=== PATIENT | male | born 1980 | race Caucasian/White ===

== ENCOUNTER 2024-06-07 21:26 | Inpatient (IN) | payer OTHER ==
[2024-06-07] MEDS ORDERED: VANCOMYCIN 1 GM/VIAL ONE (23:40)
[2024-06-07] MEDS ORDERED: HYDROMORPHONE HCL 2 MG/ML inj ONE (23:41)
[2024-06-07] MEDS ORDERED: ONDANSETRON 4 MG/2 ML VIAL ONE (23:41)
[2024-06-07] MEDS ORDERED: CEFEPIME 2 GM VIAL ONE (23:41)
[2024-06-07] MEDS ORDERED: NA CHLORIDE 0.9% 250 ML ONE (23:41)
[2024-06-07] MEDS ORDERED: FAMOTIDINE 20 MG/2 ML VIAL IV ONE (23:41)
[2024-06-07] MEDS ORDERED: DIPHENHYDRAMINE 50 MG/ML VIAL ONE (23:41)
[2024-06-07] MEDS ORDERED: NA CHLORIDE 0.9% 1,000 ML ONE (23:42)
[2024-06-07] MEDS ORDERED: NA CHLORIDE 0.9% 100 ML ONE (23:42)
[2024-06-07 23:56] LABS: Absolute Lymphocytes (CBC) 2.3 K/uL (0.7-4.9); Absolute Monocytes 0.3 K/uL (0.1-1.3); Absolute Neutrophil 4.8 K/uL (1.8-8.0); Basophils % 0.6 % (0-1.3); Eosinophils % 0.3 % (0-4.4); Hematocrit 36.4 % (39.6-49.0); Hemoglobin 12.5 g/dL (13.6-17.9); Lymphocytes % 30.9 % (15.3-44.8); MCH 30.7 pg (27.0-35.0); MCHC 34.2 g/dL (32.0-36.0); MCV 89.8 fL (80-100); Monocytes % 4.5 % (3.3-12.3); Neutrophils % 63.7 % (41.7-73.7); Platelets 243 thou/uL (152-406); RBC Red Blood Cell Count 4.06 M/uL (4.33-5.43); Red Cell Distribution Width 15.4 % (12.1-15.2)
[2024-06-08 00:16] LABS: ALT/SGPT 15 U/L (16-61); AST/SGOT < 10 U/L (15-37); Albumin 3.3 g/dL (3.4-5.0); Albumin/Globulin Ratio 0.7 (1.1-1.8); Alkaline Phosphatase 144 U/L (45-117); Anion Gap 9.9 mEq/L (5.0-15.0); BUN Blood Urea Nitrogen 22 mg/dL (7-18); Bicarbonate 26 mEq/L (21-32); Bilirubin Total 0.4 mg/dL (0.2-1.0); C-Reactive Protein < 2.90 mg/L (<3.00); Glomerular Filtration Rate 45 ml/min (=/>90); Glucose Level 361 mg/dL (74-106); Lipase 106 U/L (13-75); NT PRO-BNP 59 pg/mL (<125); Potassium 3.9 mEq/L (3.5-5.1); Protein, Total 8.3 g/dL (6.4-8.2); Sodium Level 135 mEq/L (136-145)
[2024-06-08] MEDS ORDERED: LORazepam 2 MG/ML VIAL ONE (01:28)
[2024-06-08] MEDS ORDERED: INSULIN REGULAR (HUMAN) 100 UNIT/ML ONE ×2 (01:29→09:30)
[2024-06-08] MEDS ORDERED: NA CHLORIDE 0.9% 1,000 ML ONE (01:29)
[2024-06-08] MEDS ORDERED: HYDROMORPHONE HCL 2 MG/ML inj ONE (01:29)
--- NOTE | 2024-06-08 02:14 | RAD REPORT ---
EXAM: CT Chest, Abdomen and Pelvis Without Intravenous Contrast CLINICAL HISTORY: The patient is 43 years old and is Male; ABDOMINAL DISTENTION TECHNIQUE: Axial computed tomography images of the chest, abdomen and pelvis without intravenous contrast. S agittal and coronal reformatted images were created and reviewed. This CT exam was performed using one or more of the following dose reduction techniques: automated exposure control, adjustmen t of the mA and/or kV according to patient size, and/or use of iterative reconstruction technique. COMPARISON: No relevant prior studies available. FINDINGS: CHEST: LUNGS: The lungs are clear of focal opacity, mass, or consolidation. PLEURAL SPACE: Unremarkable. No significant effusion. No pneumothorax. HEART: Minimal calcification coronary vessels is noted. The heart is not enlarged. There is no pe ricardial effusion. ABDOMEN: LIVER: A low attenuating lesion within the right hepatic lobe is present measuring approximately 5.1 x 3.5 cm on coronal image 54. The liver is otherwise homogeneous. GALLBLADDER AND BILE DUCTS: Surgical clips are present in the right upper quadrant, consistent wi th previous cholecystectomy. PANCREAS: Mild atrophy and fatty infiltration of pancreas is noted. No ductal dilation. SPLEEN: Unremarkable. ADRENALS: Unremarkable. No mass. KIDNEYS AND URETERS: No obstructing stones. No hydronephrosis. No perinephric fluid. STOMACH AND BOWEL: The stomach is minimally distended with food contents. The small bowel is norm al in caliber. Stool is present throughout the colon. There is no mucosal thickening or evidence of obstruction. PELVIS: APPENDIX: The appendix is normal in caliber without surrounding inflammation. BLADDER: The bladder is well distended. No stones. REPRODUCTIVE: Unremarkable as visualized. CHEST, ABDOMEN and PELVIS: INTRAPERITONEAL SPACE: Unremarkable. No significant fluid collection. No free air. BONES/JOINTS: Obliteration of the intervertebral disc space at L4-L5 is noted. The remaining inte rvertebral disc spaces are maintained. Neural foraminal narrowing at L4-L5 is present with mild facet arthropathy. There is no acute fracture. SOFT TISSUES: A tiny fat-containing umbilical hernia is present. A small lipoma within the equipment manager ior aspect of the right upper back measuring approximately 4.9 x 4.0 cm is present. VASCULATURE: Calcified phleboliths are present within the pelvis. Minimal atherosclerosis of th e vasculature is present. LYMPH NODES: Unremarkable. No enlarged lymph nodes. IMPRESSION: 1. No acute findings on this noncontrast CT of the chest, abdomen and pelvis to explain the patient 's symptoms. 2. Low attenuating right hepatic lobe lesion as described. Correlation with prior imaging to assess stability is recommended. 3. Chronic findings as detailed above. Electronically signed by: Trinity Bridges MD 06/08/2024 02:[address] [facility] Due to temporary technical issues with the [employer] reporting system, reports are being bert d by the in-house radiologist without review as a courtesy to ensure prompt reporting the interpreting radiologist is fully responsible for the content of the report. Transcribed Date/Time: 06/08/2024 2:13 AM
--- NOTE | 2024-06-08 02:26 | EDPHYS ---
Physician Documentation [facility] Name: Isaac Desai Age: 43 yrs Sex: Male : 1980 Arrival Date: 06/07/2024 Time: 21:26 Bed 13 Private MD: ED Physician Vince Leach HPI: 06/07 21:40 This 43 yrs old Male presents to ER via Unassigned with complaints of sp4 Nausea/Vomiting, Wound Infection. 06/08 23:16 43-year-old male presents with complaint of nausea vomiting and abdominal pain, also sp4 complaining of right lower below-knee amputation stump irritation and open wound.. 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 - Infectious Disease History:: Denies. - Social history:: Smoking status: Patient reports the use of cigarette tobacco products, unknown amount. - Family history:: not pertinent. ROS: 23:16 Constitutional: Negative for fever, chills, and weight loss, positive nausea vomiting sp4 and abdominal pain , positive infection and open wound right lower extremity below-knee amputation stump 23:16 All other systems are negative, Exam: 23:16 Constitutional: This is a well developed, well nourished patient who is awake, alert, sp4 and in no acute distress. Head/Face: Normocephalic, atraumatic. Eyes: Pupils equal round and reactive to light, extra-ocular motions intact. Lids and lashes normal. Conjunctiva and sclera are not injected. Cornea within normal limits. Periorbital areas with no swelling, redness, or edema. ENT: Nares patent. No nasal discharge, no septal abnormalities noted. Tympanic membranes are normal and external auditory canals are clear. Oropharynx with no redness, swelling, or masses, exudates, or evidence of obstruction, uvula midline. Mucous membranes moist. Neck: Trachea midline, no thyromegaly or masses palpated, and no cervical lymphadenopathy. Supple, full range of motion without nuchal rigidity, or vertebral point tenderness. Chest/axilla: Normal chest wall appearance and motion. Nontender with no deformity. No lesions are appreciated. Cardiovascular: Regular rate and rhythm with a normal S1 and S2. No gallops, murmurs, or rubs. Normal PMI, no JVD. No pulse deficits. Respiratory: Lungs have equal breath sounds bilaterally, clear to auscultation and percussion. No rales, rhonchi or wheezes noted. No increased work of breathing, no retractions or nasal flaring. Abdomen/GI: Soft, with normal bowel sounds. No distension or tympany. No guarding or rebound. No evidence of tenderness throughout. Back: No spinal tenderness. No costovertebral tenderness. Skin: Warm, dry with normal turgor. Normal color with no rashes, no lesions, and no evidence of cellulitis. MS/ Extremity: Pulses equal, no cyanosis. Neurovascular intact. Right BKA site has signs of cellulitis and open wound with small amount of purulent drainage. Neuro: Awake and alert, GCS 15, oriented to person, place, time, and situation. Cranial nerves II-XII grossly intact. Motor strength 5/5 in all extremities. Sensory grossly intact. Psych: Awake, alert, with orientation to person, place and time. Behavior, mood, and affect are within normal limits Vital Signs: 06/07 23:47 BP 155 / 101; Pulse 89; Resp 16; Temp 98.7; Pulse Ox 100% on R/A; Weight 74.84 kg; Pain dd2 10/10; 06/08 00:00 BP 159 / 99; Pulse 81; Resp 16; Pulse Ox 100% on R/A; dd2 00:30 BP 147 / 90; Pulse 77; Resp 16; Pulse Ox 100% on R/A; dd2 01:00 BP 149 / 91; Pulse 74; Resp 17; Pulse Ox 100% on R/A; dd2 02:00 BP 136 / 95; Pulse 85; Resp 16; Pulse Ox 100% on R/A; dd2 06/07 23:47 Pain Scale: Adult dd2 Darryl Coma Score: 06/07 23:55 Eye Response: spontaneous(4). Motor Response: obeys commands(6). Verbal Response: dd2 oriented(5). Total: 15. 06/08 23:16 Eye Response: spontaneous(4). Motor Response: obeys commands(6). Verbal Response: sp4 oriented(5). Total: 15. MDM: 06/07 21:41 Medical Screening Exam initiated sp4 06/08 01:33 ED course: EXAM: XR Right Tibia and Fibula, 2 Views CLINICAL HISTORY: The patient is 43 sp4 years old and is Male; stump infection TECHNIQUE: Frontal and lateral views of the right tibia and fibula. COMPARISON: No relevant prior studies available. FINDINGS: BONES/JOINTS: Evidence of oevby-cua-opza amputation is noted. Mild sclerosis and irregularity involving the distal aspect of the residual tibia is noted. Remaining bone mineralization and contour is normal. No acute fracture. No dislocation. SOFT TISSUES: Mild skin thickening and suggested ulceration of the stump is present. No radiopaque foreign body. IMPRESSION: Mild skin thickening and suggested ulceration of the stump is present. Findings suggest cellulitis. Minimal irregularity of the distal aspect of the tibia which may be secondary to developing osteomyelitis. Consider further evaluation with MRI. . 02:08 ED course: COMPARISON: No relevant prior studies available. FINDINGS: CHEST: LUNGS: The sp4 lungs are clear of focal opacity, mass, or consolidation. PLEURAL SPACE: Unremarkable. No significant effusion. No pneumothorax. HEART: Minimal calcification coronary vessels is noted. The heart is not enlarged. There is no pericardial effusion. ABDOMEN: LIVER: A low attenuating lesion within the right hepatic lobe is present measuring approximately 5.1 x 3.5 cm on coronal image 54. The liver is otherwise homogeneous. GALLBLADDER AND BILE DUCTS: Surgical clips are present in the right upper quadrant, consistent with previous cholecystectomy. PANCREAS: Mild atrophy and fatty infiltration of pancreas is noted. No ductal dilation. SPLEEN: Unremarkable. ADRENALS: Unremarkable. No mass. KIDNEYS AND URETERS: No obstructing stones. No hydronephrosis. No perinephric fluid. STOMACH AND BOWEL: The stomach is minimally distended with food contents. The small bowel is normal in caliber. Stool is present throughout the colon. There is no mucosal thickening or evidence of obstruction. PELVIS: APPENDIX: The appendix is normal in caliber without surrounding inflammation. BLADDER: The bladder is well distended. No stones. REPRODUCTIVE: Unremarkable as visualized. CHEST, ABDOMEN and PELVIS: INTRAPERITONEAL SPACE: Unremarkable. No significant fluid collection. No free air. BONES/JOINTS: Obliteration of the intervertebral disc space at L4-L5 is noted. The remaining intervertebral disc spaces are maintained. Neural foraminal narrowing at L4-L5 is present with mild facet arthropathy. There is no acute fracture. SOFT TISSUES: A tiny fat-containing umbilical hernia is present. A small lipoma within the posterior aspect of the right upper back measuring approximately 4.9 x 4.0 cm is present. VASCULATURE: Calcified phleboliths are present within the pelvis. Minimal atherosclerosis of the vasculature is present. LYMPH NODES: Unremarkable. No enlarged lymph nodes. IMPRESSION: 1. No acute findings on this noncontrast CT of the chest, abdomen and pelvis to explain the patient's symptoms. 2. Low attenuating right hepatic lobe lesion as described. Correlation with prior imaging to assess stability is recommended. 3. Chronic findings as detailed above. Electronically signed by: Trinity Bridges MD 06/08/2024 02:03 AM. 02:22 Differential diagnosis: Nonspecific abd pain, gastritis, pancreatitis, diverticulitis, sp4 viral gastroenteritis, gastroenteritis. Data reviewed: vital signs, nurses notes, lab test result(s), CBC, drug level(s), electrolytes, hepatic panel, urinalysis, radiologic studies, CT scan, plain films. Consideration of Admission/Observation Patient was admitted/placed on observation. Escalation of care including admission/observation considered. Management of patient was discussed with the following: Hospitalist: Alphonso FITZGERALD . Press And Blow Machine Tender: Ricardo FITZGERALD General Surgery . ED course: Patient has isolated liver mass 5 by 3.5 cm. No sign of metastatic disease. Patient stable for admission for evaluation of right lower below-knee stump cellulitis and open sore. . 23:19 ED course: Patient was admitted in stable condition.. 06/07 22:10 Order name: CBC with Diff; Complete Time: : sp4 06/07 22:10 Order name: Urinalysis w/ reflexes sp4 06/07 22:11 Order name: CRP; Complete Time: : sp4 06/07 22:12 Order name: Blood Culture Adult (2) sp4 06/07 22:12 Order name: AMMONIA; Complete Time: : sp4 06/07 22:12 Order name: BNP; Complete Time: sp4 06/07 23:52 Order name: Comprehensive Metabolic Panel; Complete Time: : EDMS 06/07 23:52 Order name: Lipase; Complete Time: : EDMS 06/08 02:45 Order name: Basic Metabolic Panel EDMS 06/08 02:45 Order name: Basic Metabolic Panel EDMS 06/08 02:45 Order name: CBC with Automated Diff EDMS 06/08 02:45 Order name: CBC with Automated Diff EDMS 06/08 03:30 Order name: Vancomycin Level Trough EDMS 06/08 08:27 Order name: Glucose, Ancillary Testing; Complete Time: 23:19 EDMS 06/08 11:02 Order name: Glucose, Ancillary Testing; Complete Time: 23:19 EDMS 06/07 22:11 Order name: Tib Fib Right XRAY; Complete Time: 23:19 sp4 06/08 00:43 Order name: Chest Abd Pelvis Wo Con; Complete Time: 23:19 EDMS 06/08 02:45 Order name: CONS Physician Consult EDMS 06/07 22:10 Order name: IV Saline Lock; Complete Time: 23:55 sp4 06/07 22:10 Order name: Labs collected and sent; Complete Time: 23:55 sp4 06/07 22:11 Order name: Wound Care: done by MD ; Complete Time: 23:55 sp4 Administered Medications: 06/07 23:54 Drug: Famotidine IVP 20 mg IVP once; dilute with 10 mL 0.9% NaCl; give over 2 minutes dd2 Route: IVP; Site: right antecubital; 06/08 00:10 Follow up: Response: No adverse reaction 2 06/07 23:54 Drug: NS 0.9% IV 1000 ml IV at 1 bolus Per protocol; to be given as a bolus over 60 dd2 minutes Route: IV; Rate: 1 bolus; Site: right antecubital; 06/08 00:58 Follow up: IV Status: Completed infusion; IV Intake: 1000ml 2 06/07 23:54 Drug: HYDROmorphone IVP 2 mg IVP once Route: IVP; Site: right antecubital; dd2 06/08 00:10 Follow up: Response: No adverse reaction dd2 06/07 23:54 Drug: diphenhydrAMINE IVP 25 mg IVP once Route: IVP; Site: right antecubital; dd2 06/08 00:10 Follow up: Response: No adverse reaction dd2 06/07 23:55 Drug: Ondansetron IVP 8 mg IVP once; over 2 minutes Route: IVP; Site: right antecubital;dd2 06/08 00:10 Follow up: Response: No adverse reaction dd2 00:21 Drug: Cefepime IVPB 2 grams IVPB at 200 ml/hr once over 30 mins; (mix in NS 100 mL) dd2 Route: IVPB; Rate: 200 ml/hr; Infused Over: 30 mins; Site: right antecubital; 00:57 Follow up: IV Status: Completed infusion; IV Intake: 100ml dd2 01:46 Drug: NS 0.9% IV 1000 ml IV at 1 bolus Per protocol; to be given as a bolus over 60 dd2 minutes Route: IV; Rate: 1 bolus; Site: right antecubital; 02:53 Follow up: IV Status: Completed infusion; IV Intake: 1000ml dd2 01:46 Drug: Insulin Regular Human IVP 5 units IVP once {Co-Signature: vc1 (Kaic Call dd2 RN).} Route: IVP; Site: right antecubital; 02:01 Follow up: Response: No adverse reaction dd2 01:47 Drug: HYDROmorphone IVP 2 mg IVP once Route: IVP; Site: right antecubital; dd2 02:02 Follow up: Response: No adverse reaction dd2 02:02 Follow up: Response: No adverse reaction dd2 01:47 Drug: Ativan IVP 1 mg IVP once Route: IVP; Site: right antecubital; dd2 02:02 Follow up: Response: No adverse reaction dd2 02:03 Drug: vancoMYCIN IVPB 1 grams IVPB once over 2 hrs Route: IVPB; Infused Over: 2 hrs; dd2 Site: right antecubital; 04:07 Follow up: IV Status: Completed infusion; IV Intake: 250ml dd2 Disposition Summary: 06/08/24 02:25 Hospitalization Ordered Notes: Hospitalization Status: Inpatient Admission sp4 Provider: Saira Werner sp4 Condition: Fair sp4 Problem: new sp4 Symptoms: have improved sp4 Bed/Room Type: Standard sp4 Location: Telemetry/MedSurg (Inpatient)(06/08/24 11:19) bc6 Room Assignment: [facility](06/08/24 11:19) bc6 Diagnosis - Cellulitis of right lower limb sp4 - Uncontrolled diabetes mellitus type 2, acute cellulitis of right below knee stump sp4 associated with open wound, wound dehiscence right lower stump. Hyperglycemia, Liver mass Forms: - Medication Reconciliation Form sp4 - SBAR form sp4 - Leadership Thank You Letter sp4 Signatures: Dispatcher [employer] EDMS Inés Ledbetter rv1 Ida Salgado bc6 Vince Leach MD MD sp4 AIDA GODINEZ RN RN dd2 Kaci Call RN vc1 Corrections: (The following items were deleted from the chart) 06/07 22:12 22:12 Tib Fib Right+RAD.RAD.BRZ ordered. EDMS EDMS 23:51 22:10 COMPREHENSIVE METABOLIC PANEL+C.LAB.BRZ ordered. EDMS EDMS 23:51 22:10 LIPASE+C.LAB.BRZ ordered. EDMS EDMS 06/08 00:42 03 22:10 Chest Abdomen Pelvis W Con+CT.RAD.BRZ ordered. EDMS EDMS 06/08 02:46 02:45 PMHx: Unable to Obtain; dd2 dd2 02:55 02:25 Telemetry/MedSurg (Inpatient) sp4 rv1 02:55 02:25 sp4 rv1 03:05 02:45 Allergies: No Known Allergies; dd2 dd2 11:19 02:55 [facility] ER HOLD rv1 bc6 11:19 02:55 ERHOLD- rv1 bc6
--- NOTE | 2024-06-08 02:26 | ER ---
Nurse's Notes [facility] Name: Isaac Desai Age: 43 yrs Sex: Male : 1980 Arrival Date: 06/07/2024 Time: 21:26 Bed 13 Private MD: Diagnosis: Cellulitis of right lower limb;Uncontrolled diabetes mellitus type 2, acute cellulitis of right below knee stump associated with open wound, wound dehiscence right lower stump. Hyperglycemia, Liver mass Presentation: 06/07 23:47 Chief complaint: Patient states: NAUSEA AND VOMITING FOR 2 WEEKS, PAIN TO RT AMPUTATION dd2 SITE WOUND. Coronavirus screen: At this time, the client does not indicate any symptoms associated with coronavirus-19. Ebola Screen: No symptoms or risks identified at this time. Initial Sepsis Screen: Does the patient meet any 2 criteria? No. Patient's initial sepsis screen is negative. Does the patient have a suspected source of infection? No. Patient's initial sepsis screen is negative. Risk Assessment: Do you want to hurt yourself or someone else? Patient reports no desire to harm self or others. Onset of symptoms is unknown. 23:47 Method Of Arrival: Wheelchair dd2 23:47 Acuity: CHAPARRITA 3 dd2 Triage Assessment: 06/08 02:45 General: Appears uncomfortable, Behavior is appropriate for age, agitated. Pain: dd2 Complains of pain in right knee Pain does not radiate. Pain currently is 10 out of 10 on a pain scale. Quality of pain is described as sharp. EENT: No deficits noted. No signs and/or symptoms were reported regarding the EENT system. Neuro: No deficits noted. Wiley Agitation-Sedation Scale (RASS): +2 Agitated Level of Consciousness is awake, alert, obeys commands, Oriented to person, place, time, situation, Appropriate for age. Cardiovascular: No deficits noted. Patient's skin is warm and dry. Respiratory: No deficits noted. Airway is patent Respiratory effort is even, unlabored, Respiratory pattern is regular, symmetrical. GI: Abdomen is non-distended, Bowel sounds present X 4 quads. Abd is soft and non tender X 4 quads. Reports intolerance of food, nausea, vomiting. : No deficits noted. No signs and/or symptoms were reported regarding the genitourinary system. Derm: Wound noted right knee Other: WOUND TO RT BKA SURGICAL SITE. WOUND WAS ASSESSED BY MD DEBRA PRIOR TO TRIAGE AND DRESSED BY MD Reports burning, pain that is 10 out of 10 on a pain scale. Musculoskeletal: Amputation of left negrete, anterior aspect of left ankle and dorsum of left foot. Range of motion: intact in all extremities. 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 - Infectious Disease History:: Denies. - Social history:: Smoking status: Patient reports the use of cigarette tobacco products, unknown amount. - Family history:: not pertinent. Screenin/05 23:55 [facility] ED Fall Risk Assessment (Adult) History of falling in the last 3 months, dd2 including since admission No falls in past 3 months (0 pts) Confusion or Disorientation No (0 pts) Intoxicated or Sedated No (0 pts) Impaired Gait Yes (1 pt) Mobility Assist Device Used Yes (1 pt) Altered Elimination No (0 pt) Score/Fall Risk Level 0 - 2 = Low Risk Oriented to surroundings, Maintained a safe environment, Educated pt \T\ family on fall prevention, incl call for assistance when getting out of bed, Assessed \T\ reinforced patient's understanding of fall precautions, Hourly rounding (assess needs \T\ fall precautionary measures) done. Abuse screen: Denies threats or abuse. Denies injuries from another. Nutritional screening: No deficits noted. Tuberculosis screening: No symptoms or risk factors identified. Assessment: 23:14 Reassessment: PT BROUGHT FROM TRIAGE. ASSUMING CARE OF PT AT THIS TIME. dd2 23:55 Reassessment: SEE TRIAGE ASSESSMENT FOR FULL ASSESSMENT. dd2 Vital Signs: 23:47 BP 155 / 101; Pulse 89; Resp 16; Temp 98.7; Pulse Ox 100% on R/A; Weight 74.84 kg; Pain dd2 10; 03/06 00:00 BP 159 / 99; Pulse 81; Resp 16; Pulse Ox 100% on R/A; dd2 00:30 BP 147 / 90; Pulse 77; Resp 16; Pulse Ox 100% on R/A; dd2 01:00 BP 149 / 91; Pulse 74; Resp 17; Pulse Ox 100% on R/A; dd2 02:00 BP 136 / 95; Pulse 85; Resp 16; Pulse Ox 100% on R/A; dd2 06/07 23:47 Pain Scale: Adult dd2 Darryl Coma Score: 06/07 23:55 Eye Response: spontaneous(4). Motor Response: obeys commands(6). Verbal Response: dd2 oriented(5). Total: 15. 06/08 23:16 Eye Response: spontaneous(4). Motor Response: obeys commands(6). Verbal Response: sp4 oriented(5). Total: 15. ED Course: 06/07 21:29 Patient arrived in ED. jj6 21:39 Vince Leach MD is Attending Physician. sp4 22:48 Radiology exam delayed due to pt is wanting medication first before doing x rays. az 23:01 AIDA GODINEZ, RN is Primary Nurse. dd2 23:20 Appears angry. CURSING AT RN AND DEMANDING TO SPEAK WITH TALENT ACQUISITION ASSOCIATE. [facility] dd2 TALENT ACQUISITION ASSOCIATE CAME AND SPOKE WITH PT. 23:30 Initial lab(s) drawn, by me, sent to lab. First set of blood cultures drawn by me. dd2 Patient maintains SpO2 saturation greater than 95% on room air. 23:46 Radiology exam delayed due to pt wanting medication first before doing x rays. ml 23:47 Radiology exam delayed due to IV insertion attempt and/or patient not having sj appropriate IV at this time. 23:53 No provider procedures requiring assistance completed. Inserted saline lock: 20 gauge dd2 in right antecubital area, using aseptic technique. Blood collected. Flushed with 10 mL NS. 23:55 Patient has correct armband on for positive identification. Bed in low position. Call dd2 light in reach. Side rails up X 1. Client placed on continuous cardiac and pulse oximetry monitoring. NIBP monitoring applied. Door closed. Noise minimized. Warm blanket given. Pillow given. Verbal reassurance given. 06/08 00:41 Tib Fib Right XRAY In Process Unspecified. EDMS 01:12 Chest Abd Pelvis Wo Con In Process Unspecified. EDMS 02:23 Saira Werner MD is Hospitalizing Provider. sp4 02:45 Triage completed. dd2 02:45 Arm band placed on right wrist. Patient placed in an exam room, on a stretcher, on dd2 pulse oximetry. 11:49 Patient admitted, IV remains in place. [facility] 11:50 Provided Education on: Need for admit. [facility] Administered Medications: 06/07 23:54 Drug: Famotidine IVP 20 mg IVP once; dilute with 10 mL 0.9% NaCl; give over 2 minutes dd2 Route: IVP; Site: right antecubital; 06/08 00:10 Follow up: Response: No adverse reaction 2 06/07 23:54 Drug: NS 0.9% IV 1000 ml IV at 1 bolus Per protocol; to be given as a bolus over 60 dd2 minutes Route: IV; Rate: 1 bolus; Site: right antecubital; 06/08 00:58 Follow up: IV Status: Completed infusion; IV Intake: 1000ml dd2 06/07 23:54 Drug: HYDROmorphone IVP 2 mg IVP once Route: IVP; Site: right antecubital; dd2 06/08 00:10 Follow up: Response: No adverse reaction 2 06/07 23:54 Drug: diphenhydrAMINE IVP 25 mg IVP once Route: IVP; Site: right antecubital; dd2 06/08 00:10 Follow up: Response: No adverse reaction 2 06/07 23:55 Drug: Ondansetron IVP 8 mg IVP once; over 2 minutes Route: IVP; Site: right antecubital;dd2 06/08 00:10 Follow up: Response: No adverse reaction dd2 00:21 Drug: Cefepime IVPB 2 grams IVPB at 200 ml/hr once over 30 mins; (mix in NS 100 mL) dd2 Route: IVPB; Rate: 200 ml/hr; Infused Over: 30 mins; Site: right antecubital; 00:57 Follow up: IV Status: Completed infusion; IV Intake: 100ml dd2 01:46 Drug: NS 0.9% IV 1000 ml IV at 1 bolus Per protocol; to be given as a bolus over 60 dd2 minutes Route: IV; Rate: 1 bolus; Site: right antecubital; 02:53 Follow up: IV Status: Completed infusion; IV Intake: 1000ml dd2 01:46 Drug: Insulin Regular Human IVP 5 units IVP once {Co-Signature: vc1 Kaci Rojas dd2 RN).} Route: IVP; Site: right antecubital; 02:01 Follow up: Response: No adverse reaction dd2 01:47 Drug: HYDROmorphone IVP 2 mg IVP once Route: IVP; Site: right antecubital; dd2 02:02 Follow up: Response: No adverse reaction dd2 02:02 Follow up: Response: No adverse reaction dd2 01:47 Drug: Ativan IVP 1 mg IVP once Route: IVP; Site: right antecubital; dd2 02:02 Follow up: Response: No adverse reaction dd2 02:03 Drug: vancoMYCIN IVPB 1 grams IVPB once over 2 hrs Route: IVPB; Infused Over: 2 hrs; dd2 Site: right antecubital; 04:07 Follow up: IV Status: Completed infusion; IV Intake: 250ml dd2 Medication: 06/07 23:55 VIS not applicable for this client. dd2 Intake: 03 00:57 IV: 100ml; Total: 100ml. dd2 00:58 IV: 1000ml; Total: 1100ml. dd2 02:53 IV: 1000ml; Total: 2100ml. dd2 04:07 IV: 250ml; Total: 2350ml. dd2 Outcome: 02:25 Decision to Hospitalize by Provider. sp4 11:49 Admitted to Tele accompanied by nurse, via wheelchair, room 415, cm10 11:49 Condition: stable 11:49 Instructed on the need for admit, 11:50 Patient left the ED. cm10 Signatures: Dispatcher [employer] EDMS Eleni Ovalles Melissa ml Zavala, Araceli az Jeffries, Jennifer [id number] Vince Leach MD MD sp4 Anna Silva RN RN cm10 AIDA GODINEZ RN RN dd2 Kaci Call RN vc1 Corrections: (The following items were deleted from the chart) 02:46 02:45 PMHx: Unable to Obtain; dd2 dd2 03:05 02:45 Allergies: No Known Allergies; dd2 dd2
[2024-06-08] MEDS ORDERED: MORPHINE 2 MG/ML SYR IV PRN (02:40)
[2024-06-08] MEDS ORDERED: GLUCAGON 1 MG/VIAL IM PRN (02:48)
[2024-06-08] MEDS ORDERED: D10W 125 ML IV PRN (02:48)
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
[2024-06-08] MEDS ORDERED: VANCOMYCIN 1 GM in NA CHLORIDE 0.9% 250 ML IVPB SCH (03:00)
[2024-06-08] MEDS: VANCOMYCIN 250 MG in NA CHLORIDE 0.9% 100 ML IVPB ONE (03:30)
[2024-06-08] MEDS: OXYCODONE HCL 5 MG TAB PO ONE (03:57)
[2024-06-08] MEDS ORDERED: OXYCODONE HCL 5 MG TAB ONE (03:59)
[2024-06-08] MEDS ORDERED: Ringers Lactate 1,000 ML IV ONE (04:00)
[2024-06-08] MEDS: Ringers Lactate 1,000 ML IV SCH (04:05)
[2024-06-08 04:35] VITALS: BMI 24.3
[2024-06-08] MEDS: HYDROMORPHONE HCL 2 MG/ML inj IV ONE ×2 (04:47→21:51)
--- NOTE | 2024-06-08 05:45 | RAD REPORT ---
EXAM: XR Right Tibia and Fibula, 2 Views CLINICAL HISTORY: The patient is 43 years old and is Male; stump infection TECHNIQUE: Frontal and lateral views of the right tibia and fibula. COMPARISON: No relevant prior studies available. FINDINGS: BONES/JOINTS: Evidence of hqlzb-[id number] amputation is noted. Mild sclerosis and irregularity i nvolving the distal aspect of the residual tibia is noted. Remaining bone mineralization and contour is normal. No acute fracture. No dislocation. SOFT TISSUES: Mild skin thickening and suggested ulceration of the stump is present. No radiopa que foreign body. IMPRESSION: Mild skin thickening and suggested ulceration of the stump is present. Findings suggest celluliti s. Minimal irregularity of the distal aspect of the tibia which may be secondary to developing osteomyelitis. Consider further evaluation with MRI. Electronically signed by: Trinity Bridges MD 06/08/2024 01:27 AM [facility] Due to temporary technical issues with the PACS/[employer] reporting system, reports are being bert d by the in-house radiologist without review as a courtesy to ensure prompt reporting the interpreting radiologist is fully responsible for the content of the report. Transcribed Date/Time: 06/08/2024 5:45 AM
[2024-06-08] MEDS ORDERED: FENTANYL CITR 100 MCG/2 ML ONE (08:54)
[2024-06-08] MEDS: FENTANYL CITR 100 MCG/2 ML IV PRN (09:05)
[2024-06-08] MEDS ORDERED: HEPARIN 5000 UNIT/ML 1 ML VIAL ONE (09:30)
[2024-06-08] MEDS: HEPARIN 5000 UNIT/ML 1 ML VIAL SQ SCH (10:53)
[2024-06-08] MEDS: INSULIN REGULAR (HUMAN) 100 UNIT/ML SQ SCH (10:53)
[2024-06-08] MEDS ORDERED: HYDROMORPHONE HCL 0.5 MG/0.5 ML INJ ONE (11:33)
[2024-06-08] MEDS ORDERED: ONDANSETRON 4 MG/2 ML VIAL ONE (11:34)
[2024-06-08] MEDS: ONDANSETRON 4 MG/2 ML VIAL IV PRN (11:39)
[2024-06-08] MEDS: HYDROMORPHONE HCL 1 MG/ML INJ IV PRN (11:39)
[2024-06-08] MEDS: INSULIN LISPRO 100 UNIT/1 ML SQ SCH (12:00)
[2024-06-08] MEDS: OXYCODONE HCL 5 MG TAB PO PRN (12:31)
[2024-06-08] MEDS: PREGABALIN 50 MG CAP PO SCH (12:32)
--- NOTE | 2024-06-08 17:11 | P.PN ---
Date of Service: 06/08/24 Patient seen and examined. He is complaining of uncontrolled pain in his right leg. He also complains of nausea and vomiting. Of note patient states he has been diagnosed with stage IV liver cancer. CT scan of the abdomen and pelvis demonstrated liver lesion, no report of metastatic mention. Patient has chronic pain which has been managed by Dr. Anastasiia Denson. Patient is on oxycodone IR 30 mg every 6 hours as confirmed by his pharmacist. Plan: Resume home pain medications. IV hydromorphone as needed for breakthrough pain. General surgery Dr. Silva consulted to evaluate patient's amputation wound gape. He has no leukocytosis and no reported fever. Mild irregularity reported on the end of the tibia amputation stump likely c hronic. Wound does not look infected. Osteomyelitis highly unlikely. Cultures are pending. Awaiting Dr. Silva input. Patient with significant hyperglycemia. Resume home insulin regimen. Continue other home medications.
[2024-06-08] MEDS: INSULIN GLARGINE 100 UNIT/ML SQ SCH (21:00)
[2024-06-08] MEDS: SIMETHICONE 80 MG CHEWABLE TAB PO PRN (21:21)
[2024-06-08] MEDS: VANCOMYCIN 1.25 GM in NA CHLORIDE 0.9% 250 ML IVPB SCH (22:03)
[2024-06-09] MEDS ORDERED: VANCOMYCIN 1.25 GM in NA CHLORIDE 0.9% 250 ML IVPB SCH (04:00)
[2024-06-09] MEDS: HYDROMORPHONE HCL 1 MG/ML INJ IV ONE ×2 (04:20→08:48)
[2024-06-09 05:32] LABS: Absolute Basophils 0.1 K/uL (0-0.5); Absolute Eosinophils 0.1 K/uL (0-0.5); Absolute Lymphocytes (CBC) 2.1 K/uL (0.7-4.9); Absolute Monocytes 0.3 K/uL (0.1-1.3); Absolute Neutrophil 2.2 K/uL (1.8-8.0); Eosinophils % 2.7 % (0-4.4); Hematocrit 29.1 % (39.6-49.0); Hemoglobin 10.1 g/dL (13.6-17.9); Lymphocytes % 43.9 % (15.3-44.8); MCH 31.2 pg (27.0-35.0); MCHC 34.9 g/dL (32.0-36.0); MCV 89.5 fL (80-100); MPV 7.4 fL (7.6-11.3); Monocytes % 5.9 % (3.3-12.3); Neutrophils % 46.5 % (41.7-73.7); Nucleated Red Blood Cells % 0.1 % (0-0); Platelets 165 thou/uL (152-406); RBC Red Blood Cell Count 3.25 M/uL (4.33-5.43); Red Cell Distribution Width 15.2 % (12.1-15.2)
[2024-06-09] MEDS: ONDANSETRON 4 MG/2 ML VIAL IV PRN (05:43)
[2024-06-09 05:48] LABS: Anion Gap 10.2 mEq/L (5.0-15.0); Potassium 4.2 mEq/L (3.5-5.1)
[2024-06-09] MEDS: lisinopriL 5 MG TAB PO SCH (08:34)
[2024-06-09] MEDS: AMLODIPINE 2.5 MG TAB PO SCH (08:34)
[2024-06-09 09:54] VITALS: O2SAT 98
[2024-06-09 11:51] VITALS: TEMP 97.7
--- NOTE | 2024-06-09 16:45 | RAD REPORT ---
EXAM: Tib Fib Right W/Wo Cont HISTORY: Tibial cortical irregularity, r/o osteomyelitis COMPARISON: Radiograph 06/08/2024 TECHNIQUE: Multiplanar multisequence MR images were obtained of the imaged right tibia and fibula wit h and without contrast. FINDINGS: Status post devuq-mkl-[id number] amputation. There is some mild edema within the marrow at the proximal and mid tibial metaphysis but no significant T1 hypointensity identified to suggest osteomyelitis. The proximal fibula is intact. No fluid collection identified. No fractures identified. IMPRESSION: No acute osseous abnormality involving the right tibia or fibula. No evidence of osteomyelitis or abs cess. Postoperative changes from below the knee amputation.
[2024-06-09 17:13] VITALS: BP 174/97
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
== END 2024-06-09 18:33 | disposition home or self-care (01) | DRG 565 ==
LOC: ER 21:26 → ERHOLD 06-08 02:40 → 4TH 06-08 11:46
PROVIDERS: ADMIT Family Medicine; ATTEND Internal Medicine
DX: T87.81 Dehiscence of amputation stump (principal); C22.8 Malignant neoplasm of liver, primary, unspecified as to type; L03.115 Cellulitis of right lower limb; G89.4 Chronic pain syndrome; N18.9 Chronic kidney disease, unspecified; E11.22 Type 2 diabetes mellitus with diabetic chronic kidney disease; E11.65 Type 2 diabetes mellitus with hyperglycemia; F17.210 Nicotine dependence, cigarettes, uncomplicated; R16.0 Hepatomegaly, not elsewhere classified; Z88.5 Allergy status to narcotic agent; Z79.4 Long term (current) use of insulin; Z89.511 Acquired absence of right leg below knee
CPT/HCPCS: 36415; 71250; 74176; 80048; 80053; 82140; 82947; 83690; 83880; 85025; 86140; 87040; 87070; 87075; 87205; 96361; 96365; 96366; 96367; 96375; 99285; A9577; J0692; J1171; J1200; J1644; J1815; J2405; J3010; J3370; J7030; J7050; J7120

== ENCOUNTER 2024-07-03 12:41 | Inpatient (IN) | payer OTHER ==
[2024-07-03] MEDS: OXYCODONE HCL 5 MG TAB PO ONE (01:00)
[2024-07-03] MEDS ORDERED: HYDROMORPHONE HCL 1 MG/ML INJ ONE ×3 (13:31→15:44)
[2024-07-03 14:00] LABS: Absolute Eosinophils 0.1 K/uL (0-0.5); Absolute Lymphocytes (CBC) 1.3 K/uL (0.7-4.9); Absolute Monocytes 0.3 K/uL (0.1-1.3); Absolute Neutrophil 5.7 K/uL (1.8-8.0); Basophils % 0.5 % (0-1.3); Hemoglobin 11.9 g/dL (13.6-17.9); MCH 31.2 pg (27.0-35.0); MCV 89.1 fL (80-100); MPV 7.5 fL (7.6-11.3); Monocytes % 4.5 % (3.3-12.3); Platelets 231 thou/uL (152-406); RBC Red Blood Cell Count 3.82 M/uL (4.33-5.43); Red Cell Distribution Width 15.1 % (12.1-15.2)
[2024-07-03] MEDS ORDERED: NA CHLORIDE 0.9% 1,000 ML ONE ×2 (14:06→16:00)
[2024-07-03 14:20] LABS: ALT/SGPT 18 U/L (16-61); Albumin 3.8 g/dL (3.4-5.0); Albumin/Globulin Ratio 0.9 (1.1-1.8); Alkaline Phosphatase 123 U/L (45-117); Anion Gap 8.4 mEq/L (5.0-15.0); BUN Blood Urea Nitrogen 30 mg/dL (7-18); Bicarbonate 25 mEq/L (21-32); Bilirubin Total 0.8 mg/dL (0.2-1.0); Globulin 4.3 g/dL (2.3-3.5); Glomerular Filtration Rate 43 ml/min (=/>90); Lipase 21 U/L (13-75); Potassium 4.4 mEq/L (3.5-5.1); Protein, Total 8.1 g/dL (6.4-8.2); Sodium Level 133 mEq/L (136-145)
[2024-07-03 14:21] LABS: AST/SGOT < 10 U/L (15-37)
[2024-07-03 14:22] LABS: Glucose Level 410 mg/dL (74-106)
[2024-07-03 14:27] LABS: PT Prothrombin Time 11.8 SECONDS (10-13.0); PTT, Activated Partial Thromb 30.3 SECONDS (27.2-37.4); Protime INR 1.04
[2024-07-03 14:40] LABS: Specific Gravity 1.024 (1.005-1.030); Sqamous Epithelial None Seen /HPF (None Seen); Urine Bacteria <20 /HPF (<20); Urine Bilirubin NEGATIVE (Negative); Urine Blood Trace (Negative); Urine Clarity Extremely Turbid (Clear); Urine Color Yellow (Yellow); Urine Culture Reflex Order NOT NEEDED; Urine Glucose 4+ (Over) (Negative); Urine Ketones TRACE (Negative); Urine Microscopic Reflex YN ORDER UMIC; Urine Mucus Slight /HPF (None Seen); Urine Nitrite NEGATIVE (Negative); Urine Protein 3+ (Negative); Urine RBC <5 /HPF (None Seen); Urine Urobilinogen 1+ (Normal); Urine WBC <5 /HPF (<5); Urine Yeast (Budding) Trace /HPF (None Seen); Urine pH 5.5 (5.0-7.0)
--- NOTE | 2024-07-03 14:55 | RAD REPORT ---
EXAM: Chest Abd Pelvis Wo Con CLINICAL INDICATION: Male, 43 years old abd, liver cancer TECHNIQUE: CT chest, abdomen and pelvis was performed, without IV contrast, as per department protoco l. Axial, sagittal and coronal reconstructions were obtained. One or more of the following dose reduction techniques were used: Automated exposure control, adjustment of the mA and/or kV according to the patient size, and/or iterative reconstruction. Unless otherwise specified, incidental findings do not require dedicated imaging follow-up. [id number]. COMPARISON: 06/08/2024 FINDINGS: The lack of intravenous contrast limits the sensitivity of this exam for evaluation of solid visceral organs, vascular structures, and retroperitoneum. ---THORAX--- LOWER NECK AND CHEST WALL: Visualized thyroid gland and soft tissues are normal. LUNGS AND AIRWAYS: Airways are clear. No evidence of airspace or interstitial process.No suspicious a nd/or stable pulmonary nodules. PLEURA: No pleural effusion. No pneumothorax. MEDIASTINUM AND LYMPH NODES: No mediastinal mass or fluid collection. Normal size mediastinal, hilar, and axillary lymph nodes. Mild distal esophageal thickening. THORACIC AORTA: No thoracic aortic aneurysm. PULMONARY ARTERIES: Caliber is within normal limits. Unable to evaluate for pulmonary emboli due to e ither protocol or lack of contrast. HEART: Normal heart size. Moderate coronary artery calcifications.No significant pericardial effusion . ---ABDOMEN/PELVIS--- UPPER GI: Unremarkable LIVER: Patient inferior aspect of the right hepatic lobe measuring approximately 4.5 cm is not signif icantly changed. GALLBLADDER/BILE DUCTS: Cholecystectomy. Mild extra-hepatic biliary ductal dilatation is likely relat ed to the post-cholecystectomy state. Consider correlating with LFT's.? PANCREAS: Atrophy, but otherwise unremarkable. SPLEEN: Moderate splenomegaly. ADRENALS: No adrenal masses. KIDNEYS AND URETERS: No hydronephrosis.No suspicious renal mass.Nonobstructing renal calculi. ABDOMINAL AORTA AND OTHER VESSELS: Mild atherosclerotic changes. PERITONEUM: No abnormal free fluid. No free air. LYMPH NODES: No pathologic lymphadenopathy. ABDOMINAL WALL: Unremarkable SMALL BOWEL/COLON: Large distal sigmoid and rectal stool burden measuring nearly 9 cm in transverse d imension. Rectal wall thickening and perirectal stranding is present.Normal appendix. URINARY BLADDER: Decompressed, not well assessed. REPRODUCTIVE ORGANS: No pathologic process. ---COMBINED--- MUSCULOSKELETAL: L4-5 fusion may be developmental. No acute fracture. ADDITIONAL FINDINGS: None. IMPRESSION: Large distal sigmoid/rectal stool burden with rectal wall thickening and stranding that may reflect f ecal impaction and stercoral colitis. Low-attenuation lesion right hepatic lobe may represent the patient's known malignancy.
[2024-07-03 14:57] LABS: Barbiturates NEGATIVE (NEGATIVE); Benzodiazepines NEGATIVE (NEGATIVE); Cocaine NEGATIVE (NEGATIVE); METHAMPHETAM NEGATIVE (NEGATIVE); Methadone NEGATIVE (NEGATIVE); Opiates NEGATIVE (NEGATIVE); Phencyclidine NEGATIVE (NEGATIVE); THC Cannibis NEGATIVE (NEGATIVE)
--- NOTE | 2024-07-03 15:04 | EDPHYS ---
Physician Documentation [facility] Name: Isaac Desai Age: 43 yrs Sex: Male : 1980 Arrival Date: 07/03/2024 Time: 12:41 Bed 13 Private MD: ED Physician Isabelle Benjamin HPI: 07/03 13:14 This 43 yrs old Male presents to ER via Wheelchair with complaints of Abdominal Pain, sb4 Nausea/Vomiting, Constipation. 13:37 Patient reports nausea, vomiting, abdominal pain, and constipation for 1 month now. He sb4 reports a history of stage IV liver cancer in which he is no longer receiving treatment for. States that he has not had a bowel movement in a month and every time he eats, he throws it up. States that he was supposed to have an endoscopy next month but the facility canceled it for unknown reasons. Historical: - Allergies: 12:49 Morphine (combative); ss 12:49 Flagyl; ss 12:49 Cipro; ss - PMHx: 12:49 diabetes mellitus; Liver CA (diabetes mellitus ); ss - PSHx: 12:49 RT BKA; ss - Immunization history:: Adult Immunizations up to date. - Infectious Disease History:: Denies. - Social history:: Smoking status: Patient reports the use of cigarette tobacco products, smokes one-half pack cigarettes per day. ROS: 13:37 Constitutional: Negative for fever, chills, and weight loss, sb4 13:37 Abdomen/GI: Positive for abdominal pain, nausea and vomiting, constipation, 13:37 All other systems are negative, Exam: 13:37 Head/Face: Normocephalic, atraumatic. Eyes: Extra-ocular motions intact. Periorbital sb4 areas with no swelling, redness, or edema. Cardiovascular: Regular rate and rhythm with a normal S1 and S2. Respiratory: No increased work of breathing, no retractions or nasal flaring. 13:37 Constitutional: The patient appears alert, awake, uncomfortable, 13:37 Abdomen/GI: Inspection: abdomen appears normal, Bowel sounds: diminished, in all quadrants, Palpation: moderate abdominal tenderness, in all quadrants, Vital Signs: 12:47 BP 162 / 103; Pulse 107; Resp 15; Pulse Ox 100% ; Weight 74.84 kg; Height 5 ft. 11 in. ph ; Pain 9/10; 13:30 BP 162 / 105; Pulse 107; Resp 18; Pulse Ox 100% ; me1 14:30 BP 169 / 94; Pulse 94; Resp 16; Pulse Ox 100% ; me1 15:30 BP 173 / 106; Pulse 87; Resp 16; Pulse Ox 100% ; me1 16:00 BP 157 / 103; Pulse 83; Resp 19; Pulse Ox 100% ; me1 16:25 BP 166 / 98; Pulse 102; Resp 19; Temp 98.4; Pulse Ox 100% ; me1 17:30 BP 164 / 102; Pulse 103; Resp 19; Temp 98.5; Pulse Ox 100% ; me1 12:47 Body Mass Index 23.01 (74.84 kg, 180.34 cm) ph 12:47 Pain Scale: Adult ph MDM: 12:44 Medical Screening Exam initiated sb4 15:04 Data reviewed: vital signs, nurses notes, lab test result(s), radiologic studies, I sb4 have discussed the patient's presentation/case with the attending Emergency Department Physician; and as a result, I will admit patient. Consideration of Admission/Observation Patient was admitted/placed on observation. Care significantly affected by the following chronic conditions: Diabetes, Cancer, Chronic Kidney Disease. Counseling: I had a detailed discussion with the patient and/or guardian regarding the historical points, exam findings, and any diagnostic results supporting the discharge/admit diagnosis, the presence of at least one elevated blood pressure reading (>120/80) during this emergency department visit, lab results, radiology results, the need for further work-up and treatment in the hospital. 07/03 13:14 Order name: Blood Culture Adult (2) [facility] 07/03 13:14 Order name: CBC with Diff; Complete Time: 14:19 4 07/03 13:14 Order name: CMP; Complete Time: 14:30 [facility] 07/03 13:14 Order name: Lactate w/ 2H reflex if indic.; Complete Time: 14:30 [facility] 07/03 13:14 Order name: Protime (+inr); Complete Time: 14:30 [facility] 07/03 13:14 Order name: Ptt, Activated; Complete Time: 14:30 [facility] 07/03 13:14 Order name: Urinalysis w/ reflexes; Complete Time: 14:40 [facility] 07/03 13:14 Order name: Lipase; Complete Time: 14:30 sb4 07/03 13:42 Order name: UDS; Complete Time: 14:58 sb4 07/03 16:00 Order name: Basic Metabolic Panel EDMS 07/03 16:00 Order name: Basic Metabolic Panel EDMS 07/03 16:00 Order name: Basic Metabolic Panel EDMS 07/03 16:00 Order name: Basic Metabolic Panel EDMS 07/03 16:00 Order name: Basic Metabolic Panel EDMS 07/03 16:01 Order name: CBC with Automated Diff EDMS 07/03 16:01 Order name: CBC with Automated Diff EDMS 07/03 16:01 Order name: CBC with Automated Diff EDMS 07/03 16:01 Order name: CBC with Automated Diff EDMS 07/03 16:01 Order name: CBC with Automated Diff EDMS 07/03 16:31 Order name: Glucose, Ancillary Testing; Complete Time: 16:37 EDMS 07/03 14:36 Order name: Chest Abd Pelvis Wo Con; Complete Time: 14:55 [facility] 07/03 16:00 Order name: CONS Physician Consult [facility] 07/03 13:14 Order name: Accucheck; Complete Time: 13:56 sb4 07/03 13:14 Order name: IV Saline Lock - Large Bore; Complete Time: 13:55 sb4 07/03 13:14 Order name: Labs collected and sent; Complete Time: 13:55 sb4 07/03 13:14 Order name: O2 Per Protocol; Complete Time: 13:19 sb4 07/03 13:14 Order name: O2 Sat Monitoring; Complete Time: 13:19 sb4 07/03 13:14 Order name: Vital Signs; Complete Time: 13:19 sb4 07/03 15:55 Order name: Accucheck Blood Glucose; Complete Time: 16:20 sb4 Administered Medications: 13:35 Drug: HYDROmorphone IVP 1 mg IVP once Route: IVP; Site: right forearm; ph 14:00 Follow up: Response: No adverse reaction; Pain is unchanged, physician notified me1 14:10 Drug: NS 0.9% IV 1000 ml IV at 1000 ml once; to be given as a bolus over 60 minutes me1 Route: IV; Rate: 1000 ml; Site: right forearm; 15:26 Follow up: Response: No adverse reaction; IV Status: Completed infusion; IV Intake: me1 1000ml 14:10 Drug: HYDROmorphone IVP 1 mg IVP once Route: IVP; Site: right forearm; me1 15:22 Follow up: Response: No adverse reaction; Pain is decreased me1 15:20 Drug: Ondansetron IVP 4 mg IVP once; over 2 minutes Route: IVP; Site: right forearm; me1 15:26 Follow up: Response: No adverse reaction; Nausea is decreased me1 15:24 Drug: Piperacillin-Tazobactam IVPB 3.375 grams IVPB once over 60 mins; (mix in NS 100 me1 mL) Route: IVPB; Infused Over: 60 mins; Site: right forearm; 15:59 Follow up: Response: No adverse reaction; IV Status: Completed infusion; IV Intake: me1 100ml 15:45 Drug: HYDROmorphone IVP 1 mg IVP once Route: IVP; Site: right forearm; me1 16:20 Follow up: Response: No adverse reaction; Pain is decreased me1 16:14 Drug: NS 0.9% IV 1000 ml IV at 1000 ml once; to be given as a bolus over 60 minutes me1 Route: IV; Rate: 1000 ml; Site: right antecubital; 16:29 Follow up: IV Status: Infusion continued upon admission me1 17:38 Follow up: Response: No adverse reaction; IV Status: Completed infusion; IV Intake: me1 1000ml Disposition Summary: 07/03/24 15:03 Hospitalization Ordered Notes: Hospitalization Status: Inpatient Admission sb4 Provider: Ginny Cornejo [facility] sb4 Condition: Fair sb4 Problem: new sb4 Symptoms: are unchanged sb4 Bed/Room Type: Standard sb4 Room Assignment: 206(07/03/24 16:02) bd Diagnosis - Stercoral colitis sb4 - Type 2 diabetes mellitus with hyperglycemia sb4 - Acute on chronic kidney failure sb4 - Fecal impaction sb4 Forms: - Medication Reconciliation Form sb4 - SBAR form sb4 - Leadership Thank You Letter sb4 Signatures: Dispatcher [employer] EDMaura Amato Shelby, RN RN ss Dante Jimenez, SECOND SHIFT SUPERVISOR-C SECOND SHIFT SUPERVISOR-Cla1 Misti Painter RN RN ph Luz Juárez PAAndrewC PA-C sb4 Yamilex Cummins, RN RN me1 Corrections: (The following items were deleted from the chart) 12:49 12:49 Allergies: Cipro PO; ss ss 13:14 13:14 BLOOD CULTURE*+BA.LAB.BRZ ordered. EDMS EDMS 13:14 13:14 CBC+H.LAB.BRZ ordered. EDMS EDMS 13:14 13:14 COMPREHENSIVE METABOLIC PANEL+C.LAB.BRZ ordered. EDMS EDMS 13:14 13:14 LACTATE+C.LAB.BRZ ordered. EDMS EDMS 13:14 13:14 PROTIME (+INR)+COAG.LAB.BRZ ordered. EDMS EDMS 13:14 13:14 PTT, ACTIVATED+COAG.LAB.BRZ ordered. EDMS EDMS 13:14 13:14 Urinalysis+U.LAB.BRZ ordered. EDMS EDMS 13:14 13:14 LIPASE+C.LAB.BRZ ordered. EDMS EDMS 13:14 13:14 Chest Abdomen Pelvis W Con+CT.RAD.BRZ ordered. EDMS EDMS 16:02 15:03 sb4 bd
--- NOTE | 2024-07-03 15:04 | ER ---
Nurse's Notes [facility] Name: Isaac Desai Age: 43 yrs Sex: Male : 1980 Arrival Date: 07/03/2024 Time: 12:41 Bed 13 Private MD: Diagnosis: Stercoral colitis;Type 2 diabetes mellitus with hyperglycemia;Acute on chronic kidney failure;Fecal impaction Presentation: 07/03 12:47 Chief complaint: Patient states: abd pain, N/V that began 1 month ago. Coronavirus ss screen: Client denies travel out of the [place] in the last 14 days. Ebola Screen: Patient denies exposure to infectious person. Patient denies travel to an Ebola-affected area in the 21 days before illness onset. Initial Sepsis Screen: Does the patient meet any 2 criteria? No. Patient's initial sepsis screen is negative. Does the patient have a suspected source of infection? No. Patient's initial sepsis screen is negative. Risk Assessment: Do you want to hurt yourself or someone else? Patient reports no desire to harm self or others. Onset of symptoms was May 2024. 12:47 Method Of Arrival: Wheelchair ss 12:47 Acuity: CHAPARRITA 3 ss Historical: - Allergies: 12:49 Morphine (combative); ss 12:49 Flagyl; ss 12:49 Cipro; ss - PMHx: 12:49 diabetes mellitus; Liver CA (diabetes mellitus ); ss - PSHx: 12:49 RT BKA; ss - Immunization history:: Adult Immunizations up to date. - Infectious Disease History:: Denies. - Social history:: Smoking status: Patient reports the use of cigarette tobacco products, smokes one-half pack cigarettes per day. Screenin:16 [facility] ED Fall Risk Assessment (Adult) History of falling in the last 3 months, ph including since admission No falls in past 3 months (0 pts) Confusion or Disorientation No (0 pts) Intoxicated or Sedated No (0 pts) Impaired Gait No (0 pts) Mobility Assist Device Used No (0 pt) Altered Elimination No (0 pt) Score/Fall Risk Level 0 - 2 = Low Risk Maintained a safe environment, Provided non-skid footwear, Hourly rounding (assess needs \T\ fall precautionary measures) done. Abuse screen: Denies threats or abuse. Nutritional screening: No deficits noted. Tuberculosis screening: No symptoms or risk factors identified. Assessment: 13:16 General: Appears uncomfortable, ill, Behavior is calm, cooperative, appropriate for ph age, Reports abd pain, N/V that began 1 month ago. Pain: Complains of pain in abdomen Pain does not radiate. Pain currently is 8 out of 10 on a pain scale. Quality of pain is described as crampy, Pain began one month ago Is continuous. 13:16 Neuro: Level of Consciousness is awake, alert, obeys commands, Oriented to person, ph place, time, situation, Appropriate for age. Cardiovascular: Patient's skin is warm and dry. Respiratory: Airway is patent Respiratory effort is even, unlabored, Respiratory pattern is regular, symmetrical. GI: Bowel sounds present X 4 quads. Abdomen is tender to palpation X 4 quads. Reports constipation, nausea, vomiting, since one month ago. : No signs and/or symptoms were reported regarding the genitourinary system. EENT: No signs and/or symptoms were reported regarding the EENT system. Derm: Skin is intact, is healthy with good turgor, Skin is pink, warm \T\ dry. Musculoskeletal: No signs and/or symptoms reported regarding the musculoskeletal system. Vital Signs: 12:47 BP 162 / 103; Pulse 107; Resp 15; Pulse Ox 100% ; Weight 74.84 kg; Height 5 ft. 11 in. ph ; Pain 9/10; 13:30 BP 162 / 105; Pulse 107; Resp 18; Pulse Ox 100% ; me1 14:30 BP 169 / 94; Pulse 94; Resp 16; Pulse Ox 100% ; me1 15:30 BP 173 / 106; Pulse 87; Resp 16; Pulse Ox 100% ; me1 16:00 BP 157 / 103; Pulse 83; Resp 19; Pulse Ox 100% ; me1 16:25 BP 166 / 98; Pulse 102; Resp 19; Temp 98.4; Pulse Ox 100% ; me1 17:30 BP 164 / 102; Pulse 103; Resp 19; Temp 98.5; Pulse Ox 100% ; me1 12:47 Body Mass Index 23.01 (74.84 kg, 180.34 cm) ph 12:47 Pain Scale: Adult ED Course: 12:43 Patient arrived in ED. im 12:43 Luz Juárez PA-C is PHCP. sb4 12:43 Isabelle Benjamin MD is Attending Physician. sb4 12:49 Triage completed. ss 12:49 Arm band placed on right wrist. ss 13:07 Misti Painter, RN is Primary Nurse. ph 13:16 Patient has correct armband on for positive identification. Bed in low position. Call ph light in reach. Side rails up X2. Provided Education on: POC. Verbalized understanding.. Client placed on continuous cardiac and pulse oximetry monitoring. NIBP monitoring applied. Pulse ox on. NIBP on. 13:16 No provider procedures requiring assistance completed. ph 13:29 Inserted saline lock: 20 gauge in right forearm, using aseptic technique. Blood ty collected. Flushed with 10 mL NS. 13:29 Initial lab(s) drawn, by me, sent to lab. First set of blood cultures drawn by me. ty 13:48 Initial lab(s) drawn, by me, sent to lab. Second set of blood cultures drawn by me. ty 13:48 Inserted saline lock: 20 gauge in left upper arm, using aseptic technique. Blood ty collected. Flushed with 10 mL NS. 13:56 Yamilex Cummins, RN is Primary Nurse. me1 13:56 Blood Culture Adult (2) Sent. ty 13:56 CBC with Diff Sent. ty 13:56 CMP Sent. ty 13:56 Lactate w/ 2H reflex if indic. Sent. ty 13:56 Protime (+inr) Sent. ty 13:56 Ptt, Activated Sent. ty 14:25 UDS Sent. ll1 14:25 Urinalysis w/ reflexes Sent. ll1 14:30 Notified Nurse Practitioner and/or Physician Chief Learning Officer of a critical lab result(s), ll1 glucose 410. 14:44 Chest Abd Pelvis Wo Con In Process Unspecified. EDMS 15:02 Ginny Cornejo MD is Hospitalizing Provider. sb4 16:32 Patient admitted, IV remains in place. me1 Administered Medications: 13:35 Drug: HYDROmorphone IVP 1 mg IVP once Route: IVP; Site: right forearm; ph 14:00 Follow up: Response: No adverse reaction; Pain is unchanged, physician notified me1 14:10 Drug: NS 0.9% IV 1000 ml IV at 1000 ml once; to be given as a bolus over 60 minutes me1 Route: IV; Rate: 1000 ml; Site: right forearm; 15:26 Follow up: Response: No adverse reaction; IV Status: Completed infusion; IV Intake: me1 1000ml 14:10 Drug: HYDROmorphone IVP 1 mg IVP once Route: IVP; Site: right forearm; me1 15:22 Follow up: Response: No adverse reaction; Pain is decreased me1 15:20 Drug: Ondansetron IVP 4 mg IVP once; over 2 minutes Route: IVP; Site: right forearm; me1 15:26 Follow up: Response: No adverse reaction; Nausea is decreased me1 15:24 Drug: Piperacillin-Tazobactam IVPB 3.375 grams IVPB once over 60 mins; (mix in NS 100 me1 mL) Route: IVPB; Infused Over: 60 mins; Site: right forearm; 15:59 Follow up: Response: No adverse reaction; IV Status: Completed infusion; IV Intake: me1 100ml 15:45 Drug: HYDROmorphone IVP 1 mg IVP once Route: IVP; Site: right forearm; me1 16:20 Follow up: Response: No adverse reaction; Pain is decreased me1 16:14 Drug: NS 0.9% IV 1000 ml IV at 1000 ml once; to be given as a bolus over 60 minutes me1 Route: IV; Rate: 1000 ml; Site: right antecubital; 16:29 Follow up: IV Status: Infusion continued upon admission me1 17:38 Follow up: Response: No adverse reaction; IV Status: Completed infusion; IV Intake: me1 1000ml Medication: 13:16 VIS not applicable for this client. ph Intake: 15:26 IV: 1000ml; Total: 1000ml. me1 15:59 IV: 100ml; Total: 1100ml. me1 17:38 IV: 1000ml; Total: 2100ml. me1 Outcome: 15:03 Decision to Hospitalize by Provider. sb4 16:32 Admitted to Med/surg accompanied by tech, via wheelchair, room 206, with chart, Report me1 called to faxed, receipt confirmed with Eboni, 16:32 Condition: stable 16:32 Instructed on the need for admit, 17:44 Patient left the ED. me1 Signatures: Dispatcher [facility] EDYoselyn Hernández RN RN ss Misti Painter RN RN ph Wilfredo, Ling, JUAN JOSE RN ll1 Luz Juárez PA-C PALucy sb4 Zonia Benjamin Michelle RN RN me1 Landon Harvey Corrections: (The following items were deleted from the chart) 12:49 12:49 Allergies: Cipro PO; [facility] 13:13 12:47 Pulse 107bpm; Resp 15bpm; Pulse Ox 100%; 74.84 kg; Height 5 ft. 11 in.; BMI: ph 23.0; Pain 9/10, Adult; ss 13:14 12:47 Chief complaint: Patient states: abd pain, N/V that began 1 month ago. ph 13:17 13:16 Pain: Complains of pain in abdomen ph ph
[2024-07-03] MEDS ORDERED: ONDANSETRON 4 MG/2 ML VIAL ONE (15:17)
[2024-07-03] MEDS ORDERED: NA CHLORIDE 0.9% 100 ML ONE (15:17)
[2024-07-03] MEDS ORDERED: PIPERACIL/TAZO 3.375 GM VIAL IV ONE (15:18)
--- NOTE | 2024-07-03 16:36 | P.HP ---
Certification for Inpatient Patient admitted to: Inpatient With expected LOS: >2 Midnights Patient will require the following post-hospital care: None Practitioner: I am a practitioner with admitting privileges, knowledge of patient current condition, hospital course, and medical plan of care. Services: Services provided to patient in accordance with Admission requirements found in Title 42 Section 412.3 of the Code of Federal Regulations Patient History Date of Service: 07/03/24 Reason for admission: Fecal impaction History of Present Illness: 43-year-old male with history of insulin-dependent diabetes, hypertension, chronic pain on opioids presents to the emergency department with severe abdominal pain, constipation. He reports last time he has bowel movement was 1 month ago, he has tried [id number] remedies including magnesium citrate, MiraLAX, enemas and digital disimpaction without any improvement. Patient was evaluated in the emergency department his labs are significant for hyperglycemia with a blood sugar of 410 creatinine 1.93 sodium 133 hemoglobin 11.9 hematocrit 34 white blood cell count 7.5 CT abdomen pelvis without IV contrast was performed which revealed large distal sigmoid/rectal stool burden with rectal wall thickening and stranding which may reflect fecal impaction and stercoral colitis. Low-attenuation lesion in the right hepatic lobe may represent the patient's known malignancy. Patient be admitted for further evaluation and management of fecal impaction/stercoral colitis Allergies morphine Adverse Reaction (Uncoded 06/08/24 03:04) Shortness of breath Home Medications: Amlodipine [Norvasc*] 2.5 mg PO DAILY 06/09/24 Amox/Clavulanate [Augmentin 875-125 Tab] 1 each PO BID #14 tab 06/09/24 Doxycycline Hyclate 100 mg PO BID #14 cap 06/09/24 Glipizide [Glipizide ER] 10 mg PO DAILY 06/09/24 Insulin Glargine,Hum.rec.anlog [Lantus Solostar] 5 units SQ DAILY 06/09/24 Insulin Lispro [Humalog Rojelio Kwikpen] See Protocol SQ ACHS 06/09/24 Oxycodone HCl 30 mg PO Q6HP PRN 06/09/24 Pregabalin 100 mg PO BID 06/09/24 Simethicone [Mylicon*] 80 mg PO Q6H PRN #30 tab 06/09/24 lisinopriL [Lisinopril] 5 mg PO DAILY 06/09/24 - Past Medical/Surgical History -: Insulin-dependent diabetes -: Hypertension -: Chronic pain -: Liver mass/cancer -: Cholecystectomy -: Right BKAtraumatic -: Back surgery Psychosocial/ Personal History: Lives at home with his children/girlfriend - Social History Smoking Status: Current every day smoker Alcohol use: No CD- Drugs: No Caffeine use: Yes Place of Residence: Home Review of Systems 10-point ROS is otherwise unremarkable Gastrointestinal: Abdominal Pain, Constipation Physical Examination - Physical Exam General: Alert, In no apparent distress, Oriented x3 HEENT: Atraumatic, PERRLA, EOMI Neck: Supple, 2+ carotid pulse no bruit, No LAD Respiratory: Clear to auscultation bilaterally, Normal air movement Cardiovascular: Regular rate/rhythm, Normal S1 S2 Gastrointestinal: Normal bowel sounds, No tenderness Musculoskeletal: No tenderness Integumentary: No rashes Neurological: Normal speech, Normal strength at 5/5 x4 extr - Studies Laboratory Data (last 24 hrs) 07/03/24 07/03/24 07/03/24 13:29 13:29 13:29 WBC 7.50 Hgb 11.9 L Hct 34.0 L Plt Count 231 PT 11.8 INR 1.04 APTT 30.3 Sodium 133 L Potassium 4.4 BUN 30 H Creatinine 1.93 H Glucose 410 H* Total Bilirubin 0.8 AST < 10 L ALT 18 Alkaline Phosphatase 123 H Lipase 21 Assessment and Plan - Plan Assessment: Fecal impaction/stercoral colitis Diabetes mellitus type 2insulin-dependent with hyperglycemia Hypertension Hyperlipidemia Liver mass/cancer Chronic pain/opioid use Plan: Fecal impaction/stercoral colitis Digital rectal exam performed, stool near anus Patient unable to tolerate digital disimpaction due to severe pain Has attempted enemas, oral laxatives at home varying types without any significant treatment Also reports digital disimpaction was attempted at home Discussed case with general surgery, plan for disimpaction under anesthesia tomorrow morning around 9 AM N.p.o., IVF, as needed pain medications and antiemetics Diabetes mellitus type 2insulin-dependent with hyperglycemia Every 6 hours Accu-Chek, sliding scale insulin Take studies of long-acting insulin at night Hypertension Hyperlipidemia Continue home medications when verified Liver mass/cancer Was on chemo, radiation around 8 months ago but quit receiving treatment as admitting feel that Has not followed up since then Chronic pain/opioid use Likely contributing to his constipation DVT PPX: SCD Code status: Full Discharge Plan: Home Plan to discharge in: 48 Hours - Advance Directives Does patient have a Living Will: No Does patient have a Durable POA for Healthcare: No - Code Status/Comfort Care Code Status Assessed: Yes (Full code) Critical Care: No Time Spent Managing Pts Care (In Minutes): 65
[2024-07-03] MEDS: HYDROMORPHONE HCL 1 MG/ML INJ IV ONE ×2 (18:28→22:11)
[2024-07-03] MEDS: NA CHLORIDE 0.9% 1,000 ML IV SCH (19:27)
[2024-07-03] MEDS: HYDROMORPHONE HCL 1 MG/ML INJ IV PRN (19:53)
[2024-07-03] MEDS: LORazepam 2 MG/ML VIAL IV ONE (22:11)
[2024-07-03] MEDS: PIPER TAZO 3.375 GM in NA CHLORIDE 0.9% 100 ML IV SCH (22:12)
[2024-07-04] MEDS: PREGABALIN 50 MG CAP PO ONE (01:00)
[2024-07-04 03:26] VITALS: BMI 22.8
[2024-07-04] MEDS: TRAMADOL HCL 50 MG TAB PO ONE (05:35)
[2024-07-04] MEDS: OXYCODONE HCL 5 MG TAB PO ONE ×2 (06:10→20:22)
[2024-07-04] MEDS: HYDROMORPHONE HCL 1 MG/ML INJ IV PRN (07:30)
[2024-07-04] MEDS ORDERED: FENTANYL CITR 100 MCG/2 ML ONE (08:37)
[2024-07-04] MEDS ORDERED: LIDOCAINE 1% MPF 5 ML VIAL ONE (08:38)
[2024-07-04] MEDS ORDERED: MIDAZOLAM HCL 2 MG/2 ML INJ ONE (08:38)
[2024-07-04] MEDS ORDERED: propofoL 200 MG/20 ML VIAL IV ONE (08:38)
[2024-07-04] MEDS: HYDROMORPHONE HCL 1 MG/ML INJ ONE (09:32)
[2024-07-04] MEDS: MIDAZOLAM HCL 2 MG/2 ML INJ ONE (09:48)
[2024-07-04] MEDS: NA CHLORIDE 0.9% 1,000 ML ONE (09:52)
--- NOTE | 2024-07-04 10:12 | P.CNS ---
Date of Consult: 07/04/24 Reason for consult: Rectal pain History of present illness: Patient is a 43-year-old gentleman comes in with 1 month history of constipation. Patient denies any nausea, vomiting or any bowel movements over the last month. Patient is taking stool softeners, high-fiber diet, laxatives and enemas as needed without success. Patient rectal exam was too painful in the ER yesterday. Patient had a CAT scan which showed impaction of fecal material in the rectal vault. Patient also has colitis. Patient denies any sore throat, runny nose, cough, headaches, dizziness, chest pain, fever or chills. Patient takes opiates which is managed by a pain management doctor. Review of systems: Otherwise unremarkable Past medical history: Diabetes, hypertension, chronic pain syndrome, liver cancer Past surgical history: Cholecystectomy, right BKA and back surgery Allergies: Morphine Social history: Patient does smoke and has been counseled denies drinking alcohol or doing street drugs Family history: Noncontributory Vital signs: Stable, afebrile Physical exam: Awake, alert and oriented x 3 Head and neck exam: No masses Chest: Clear Heart: S1-S2 Abdomen: Soft, nondistended, nontender, positive bowel sounds Extremity: Neurovascular intact right below-knee amputation has some erythema and slight opening of the wound with some some serosanguineous drainage Neuro: Nonfocal Diagnostic data: Reviewed, findings are consistent with fecal impaction and colitis Assessment: Rectal pain secondary to fecal impaction and colitis in a patient with opioid use Plan/recommendation: IV fluids, n.p.o., IV antibiotics and to the OR for Examiner anesthesia digital disimpaction. Patient understands risk, benefits and alternatives and agrees to procedure. Patient will need to be on a bowel regimen as well as medication for his opioid-induced constipation. Patient right BKA wound is being managed in the wound healing center. CC:
[2024-07-04] MEDS: COLLAGENASE 30 GM OINTMENT TOP ONE (10:54)
[2024-07-04] MEDS ORDERED: ONDANSETRON 4 MG/2 ML VIAL ONE (10:58)
--- NOTE | 2024-07-04 11:09 | P.OP ---
Date of Service: 07/04/24 Preop diagnosis: Fecal impaction, colitis Postop diagnosis: Same Procedure performed: Examiner anesthesia, fecal disimpaction Surgeon: Eh Rios MD Quality Checker: None Estimated blood loss: Minimal Specimen: None Findings: As above Anesthesia: General Complications: None Drains: None Fluids and blood products: Nonapplicable Disposition: Recovery room Operative note: Patient brought to the OR and placed in supine position. General anesthesia began. Patient placed in lithotomy position. Exam under anesthesia revealed a large amount of stool in the rectal vault. Adequate lubrication was utilized and approximately 5 pound of semihard stool was evacuated from the rectal vault. Bulb syringe was used to put liquid up there and more stool was evacuated. Pressure was applied to the left lower quadrant and more stool was evacuated. There was no further stool noted in the rectal vault. There is no evidence of disease identified in the rectum. Patient was cleaned and awakened. Patient was taken to recovery room in good general condition. CC:
[2024-07-04] MEDS ORDERED: POLYETHYL GLY 3350 17 GM/DOSE PO PRN (11:18)
[2024-07-04 11:41] VITALS: O2SAT 98
[2024-07-04] MEDS: NALOXEGOL OXALATE 12.5 MG TABLET PO SCH (13:35)
[2024-07-04 16:16] LABS: Absolute Eosinophils 0.1 K/uL (0-0.5); Absolute Lymphocytes (CBC) 2.1 K/uL (0.7-4.9); Absolute Monocytes 0.4 K/uL (0.1-1.3); Absolute Neutrophil 2.6 K/uL (1.8-8.0); Basophils % 0.5 % (0-1.3); Eosinophils % 1.2 % (0-4.4); Hematocrit 27.6 % (39.6-49.0); Hemoglobin 9.8 g/dL (13.6-17.9); Lymphocytes % 41.1 % (15.3-44.8); MCH 31.6 pg (27.0-35.0); MCHC 35.6 g/dL (32.0-36.0); MCV 88.8 fL (80-100); MPV 6.5 fL (7.6-11.3); Monocytes % 7.4 % (3.3-12.3); Neutrophils % 49.8 % (41.7-73.7); Nucleated Red Blood Cells % 0.2 % (0-0); Platelets 169 thou/uL (152-406); RBC Red Blood Cell Count 3.11 M/uL (4.33-5.43); Red Cell Distribution Width 15.2 % (12.1-15.2)
--- NOTE | 2024-07-04 16:17 | P.PN ---
Subjective Date of Service: 07/04/24 Chief Complaint: Fecal impaction Fecal disimpaction under anesthesia performed by Dr. Harkins today. Physical Examination - Vital Signs Temperature: 97.6 F Blood Pressure: 122/80 Pulse: 72 Respirations: 16 Pulse Ox (%): 96 Assessment And Plan - Plan Physical examination General: Alert and oriented x3, NAD, HEENT: Conjunctiva not pale, anicteric sclera Neck: Supple, no elevated JVD Heart: Heart sounds 1 and 2 normal, regular rhythm, normal rate, no pedal edema Lungs: Clear to auscultation bilaterally, adequate breath sounds bilaterally, no rhonchi or crackles. Abdomen: Soft, nondistended, nontender, normal bowel sounds. Extremities: No tenderness, no deformity Skin: Normal skin turgor, no rash, no nodules or ulcers. Neuro: No focal motor deficit. Normal speech. Psychiatry: Normal mood, no agitation. Assessment: Fecal impaction/stercoral colitis Diabetes mellitus type 2insulin-dependent with hyperglycemia Hypertension Hyperlipidemia Liver mass/cancer Chronic pain/opioid use Plan: Fecal impaction/stercoral colitis Digital rectal exam performed, stool near anus Patient unable to tolerate digital disimpaction due to severe pain Has attempted enemas, oral laxatives at home varying types without any significant treatment Also reports digital disimpaction was attempted at home Dr. Rios has successfully performed fecal disimpaction under anesthesia today Continue IV fluid, laxatives. Continue home dose methadone. Patient need regular constipation prophylaxis. Diabetes mellitus type 2insulin-dependent with hyperglycemia Every 6 hours Accu-Chek, sliding scale insulin Hypertension Hyperlipidemia Continue home medications. Liver mass/cancer Was on chemo, radiation around 8 months ago but quit receiving treatment. Follow-up as outpatient. Chronic pain/opioid use Continue home dose methadone Constipation prophylaxis.
[2024-07-04 16:33] LABS: Anion Gap 9.8 mEq/L (5.0-15.0); Potassium 3.8 mEq/L (3.5-5.1)
[2024-07-04] MEDS: ONDANSETRON 4 MG/2 ML VIAL IV PRN (19:20)
[2024-07-04] MEDS: HYDROCODONE/APAP 7.5/325 MG TAB PO ONE (19:47)
[2024-07-04] MEDS ORDERED: DOCUSATE NA 100 MG CAP PO SCH (21:00)
[2024-07-04] MEDS: HYDRALAZINE HCL 20 MG/ML VIAL IV PRN (21:46)
[2024-07-04] MEDS: PROMETHAZINE INJ 25 MG/ML AMP IM ONE ×2 (23:16→23:38)
[2024-07-05 07:53] LABS: Absolute Lymphocytes (CBC) 1.7 K/uL (0.7-4.9); Absolute Monocytes 0.3 K/uL (0.1-1.3); Absolute Neutrophil 4.5 K/uL (1.8-8.0); Basophils % 0.3 % (0-1.3); Eosinophils % 0.1 % (0-4.4); Hematocrit 31.1 % (39.6-49.0); Hemoglobin 11.1 g/dL (13.6-17.9); Lymphocytes % 25.6 % (15.3-44.8); MCH 31.5 pg (27.0-35.0); MCHC 35.7 g/dL (32.0-36.0); MCV 88.1 fL (80-100); MPV 7.3 fL (7.6-11.3); Platelets 200 thou/uL (152-406); RBC Red Blood Cell Count 3.53 M/uL (4.33-5.43); Red Cell Distribution Width 15.2 % (12.1-15.2)
[2024-07-05 08:01] LABS: Anion Gap 13.5 mEq/L (5.0-15.0); Potassium 3.5 mEq/L (3.5-5.1)
--- NOTE | 2024-07-05 12:19 | PN ---
Date of Progress Note: 07/05/2024 Subjective: The patient is awake, alert, complaining of nonspecific abdominal pain and nausea and vo miting, although the nursing staff has not reported any such events in the medical record nor upon qu estioning. His vital signs are stable. He is afebrile. His laboratory data reviewed. His white co unt is normal. He has no left shift and H and H is essentially unchanged. His abdomen is benign. T here is no evidence of tenderness or peritonitis present. Assessment: Status post fecal disimpaction. Recommendation: Continue opioid-induced constipation medication as ordered. Encourage high-fiber di et. From a surgical standpoint, the patient can be discharged home on oral antibiotics and bowel reg imen as described earlier in my notes. Plan of care discussed with Dr. Walter. /MODYunier Voice ID: [id number] Report ID: [id number]
[2024-07-05] MEDS: OXYCODONE HCL 5 MG TAB PO PRN (12:57)
[2024-07-05] MEDS: metroNIDAZOLE 500 MG TABLET PO SCH (14:14)
[2024-07-05] MEDS: MAGNES/ALUMIN/SIMET 30ML UCUP PO PRN (14:15)
--- NOTE | 2024-07-05 14:20 | P.PN ---
Subjective Date of Service: 07/05/24 Chief Complaint: Fecal impaction Fecal disimpaction successfully performed yesterday. Patient had multiple bowel movements after disimpaction. He is complaining of abdominal pain today. No abdominal distention. No nausea or vomiting. According to nursing staff patient is eating well. He has been drinking a lot of soda and eating food brought from outside the hospital according to the nurse. Physical Examination - Vital Signs Temperature: 98.1 F Blood Pressure: 183/96 Pulse: 75 Respirations: 16 Pulse Ox (%): 98 Assessment And Plan - Plan Physical examination General: Alert and oriented x3, NAD, HEENT: Conjunctiva not pale, anicteric sclera Neck: Supple, no elevated JVD Heart: Heart sounds 1 and 2 normal, regular rhythm, normal rate, no pedal edema Lungs: Clear to auscultation bilaterally, adequate breath sounds bilaterally, no rhonchi or crackles. Abdomen: Soft, nondistended, nontender, normal bowel sounds. Extremities: No tenderness, no deformity Skin: Normal skin turgor, no rash, no nodules or ulcers. Neuro: No focal motor deficit. Normal speech. Psychiatry: Normal mood, no agitation. Assessment: Fecal impaction/stercoral colitis Diabetes mellitus type 2insulin-dependent with hyperglycemia Hypertension Hyperlipidemia Liver mass/cancer Chronic pain/opioid use Plan: Fecal impaction/stercoral colitis Digital rectal exam performed, stool near anus Patient unable to tolerate digital disimpaction due to severe pain Has attempted enemas, oral laxatives at home varying types without any significant treatment Also reports digital disimpaction was attempted at home Dr. Rios has successfully performed fecal disimpaction under anesthesia today. Continue IV fluid, laxatives. Continue home dose methadone. Patient need regular constipation prophylaxis. Diabetes mellitus type 2insulin-dependent with hyperglycemia Every 6 hours Accu-Chek, sliding scale insulin Hypertension Hyperlipidemia Continue home medications. Liver mass/cancer Was on chemo, radiation around 8 months ago but quit receiving treatment. Follow-up as outpatient. Chronic pain/opioid use Continue home dose methadone Constipation prophylaxis. 07/05/2024 Patient has had multiple bowel movements after fecal disimpaction. He was given a dose of Movantik. Patient complaining of abdominal pain yet, he is has been eating food brought from outside hospital and already drank multiple cans od soda according to the nurse. Vitals are stable. He has been afebrile, no leukocytosis and no signs of infection. He complained of chest pain earlier, however EKG showed no ischemic changes and troponin is negative. Patient is deemed stable for discharge.
--- NOTE | 2024-07-05 14:31 | P.DS ---
Admission Date: 07/03/24 Discharge Date: 07/07/24 Disposition: ROUTINE DISCHARGE Discharge Condition: FAIR Reason for Admission: Fecal impaction Brief History of Present Illness: 43-year-old male with history of insulin-dependent diabetes, hypertension, chronic pain on opioids presented to the emergency department with severe abdominal pain, constipation. He reported he joos-yel-lstwsdw remedies including magnesium citrate, MiraLAX, enemas and digital disimpaction without any improvement. Patient was evaluated in the emergency department his labs were significant for hyperglycemia with a blood sugar of 410 creatinine 1.93 sodium 133 hemoglobin 11.9 hematocrit 34 white blood cell count 7.5 CT abdomen pelvis without IV contrast was performed which revealed large distal sigmoid/rectal stool burden with rectal wall thickening and stranding which may reflect fecal impaction and stercoral colitis. Low-attenuation lesion in the right hepatic lobe may represent the patient's known malignancy. Patient was admitted for further evaluation and management of fecal impaction/stercoral colitis. Hospital Course: Assessment: Fecal impaction/stercoral colitis Diabetes mellitus type 2insulin-dependent with hyperglycemia Hypertension Hyperlipidemia Liver mass/cancer Chronic pain/opioid use Patient admitted to the medical floor and the following medical problems addressed: Fecal impaction/stercoral colitis Digital rectal exam performed, stool near anus Patient was unable to tolerate digital disimpaction due to severe pain He had attempted enemas, oral laxatives at home varying types without any significant treatment Also reported digital disimpaction was attempted at home Dr. Rios successfully performed fecal disimpaction under anesthesia on 07/03/2024 Patient was treated with IV fluid. He also received Movantik after the disimpaction Continued home dose oxycodone. Patient is on oxycodone 30 mg 6 hours as needed for pain Patient informed he needs regular constipation prophylaxis and prescribed senna Was also prescribed MiraLAX as needed for constipation. Diabetes mellitus type 2insulin-dependent with hyperglycemia Managed with insulin sliding scale. Hypertension Hyperlipidemia Continued home medications. Liver mass/cancer Was on chemo, radiation around 8 months ago but quit receiving treatment. Follow-up as outpatient. Chronic pain/opioid use Continue home dose oxycodone. Patient has had multiple bowel movements after fecal disimpaction. Patient complained of abdominal pain and vomiting and that he has been vomiting into the trash basket and does not like vomiting into the emesis bag. The trash basket was inspected and there was no vomit. Nursing staff reported he was eating food brought from outside hospital and drank multiple cans soda. Vitals are stable. He has been afebrile, no leukocytosis and no signs of infection. He complained of chest pain earlier, however EKG shows no ischemic changes and troponin were negative. ACS ruled out. Chest pain likely musculoskeletal. Vital Signs/Physical Exam: Temp Pulse Resp BP Pulse Ox 98.1 F 75 16 183/96 H 98 07/05/24 14:24 07/05/24 14:24 07/05/24 14:24 07/05/24 14:24 07/05/24 14:24 General: Alert, In no apparent distress, Oriented x3 HEENT: Mucous membr. moist/pink Neck: Supple, JVD not distended Respiratory: Clear to auscultation bilaterally, Normal air movement Cardiovascular: No edema, Regular rate/rhythm, Normal S1 S2 Gastrointestinal: Normal bowel sounds, Soft and benign, Non-distended Musculoskeletal: No swelling Integumentary: No rashes, No cyanosis Neurological: Normal strength at 5/5 x4 extr Laboratory Data at Discharge: WBC 6.60 thou/uL (4.3-10.9) 07/05/24 07:29 Hgb 11.1 g/dL (13.6-17.9) L D 07/05/24 07:29 Hct 31.1 % (39.6-49.0) L 07/05/24 07:29 Plt Count 200 thou/uL (152-406) 07/05/24 07:29 PT 11.8 SECONDS (10-13.0) 07/03/24 13:29 INR 1.04 07/03/24 13:29 APTT 30.3 SECONDS (27.2-37.4) 07/03/24 13:29 Sodium 142 mEq/L (136-145) 07/05/24 07:29 Potassium 3.5 mEq/L (3.5-5.1) 07/05/24 07:29 BUN 17 mg/dL (7-18) 07/05/24 07:29 Creatinine 1.48 mg/dL (0.70-1.30) H 07/05/24 07:29 Glucose 269 mg/dL (74-106) H 07/05/24 07:29 Total Bilirubin 0.8 mg/dL (0.2-1.0) 07/03/24 13:29 AST < 10 U/L (15-37) L 07/03/24 13:29 ALT 18 U/L (16-61) 07/03/24 13:29 Alkaline Phosphatase 123 U/L (45-117) H 07/03/24 13:29 Lipase 21 U/L (13-75) 07/03/24 13:29 Home Medications: Amlodipine [Norvasc*] 2.5 mg PO DAILY 06/09/24 Insulin Glargine,Hum.rec.anlog [Lantus Solostar] 5 units SQ DAILY 06/09/24 Insulin Lispro [Humalog Rojelio Kwikpen] See Protocol SQ ACHS 06/09/24 Oxycodone HCl 30 mg PO Q6HP PRN 06/09/24 Pregabalin 100 mg PO BID 06/09/24 lisinopriL [Lisinopril] 5 mg PO DAILY 06/09/24 Sennosides [Senokotxtra] 17.2 mg PO BID #60 tab 07/05/24 Ciprofloxacin HCl [Cipro 500 MG Tablet] 500 mg PO BID #10 tab 07/06/24 metroNIDAZOLE [Flagyl*] 500 mg PO TID #15 tab 07/06/24 Polyethylene Glycol 3350 [Miralax] 17 gm PO DAILY PRN #30 packet 07/07/24 New Medications: Ciprofloxacin HCl [Cipro 500 MG Tablet] 500 mg PO BID #10 tab metroNIDAZOLE [Flagyl*] 500 mg PO TID #15 tab Polyethylene Glycol 3350 [Miralax] 17 gm PO DAILY PRN #30 packet PRN Reason: Constipation Sennosides [Senokotxtra] 17.2 mg PO BID #60 tab Diet: ADA Activity: Ad khanh Followup: [facility] [Primary Care Provider] - Time spent managing pt's care (in minutes): 36
[2024-07-05] MEDS: CIPROFLOXACIN HCL 500 MG TAB PO SCH (17:38)
[2024-07-05] MEDS ORDERED: D10W 125 ML IV PRN (18:02)
[2024-07-05] MEDS ORDERED: GLUCAGON 1 MG/VIAL IM PRN (18:02)
[2024-07-05] MEDS: INSULIN GLARGINE 100 UNIT/ML SQ SCH (18:15)
[2024-07-05] MEDS: INSULIN REGULAR (HUMAN) 100 UNIT/ML SQ SCH (22:11)
[2024-07-06 07:45] LABS: Absolute Lymphocytes (CBC) 1.6 K/uL (0.7-4.9); Absolute Monocytes 0.3 K/uL (0.1-1.3); Absolute Neutrophil 4.2 K/uL (1.8-8.0); Basophils % 0.7 % (0-1.3); Eosinophils % 0.5 % (0-4.4); Hematocrit 28.3 % (39.6-49.0); Hemoglobin 9.9 g/dL (13.6-17.9); Lymphocytes % 26.1 % (15.3-44.8); MCH 31.4 pg (27.0-35.0); MCHC 34.9 g/dL (32.0-36.0); MCV 89.9 fL (80-100); MPV 7.1 fL (7.6-11.3); Monocytes % 4.9 % (3.3-12.3); Neutrophils % 67.8 % (41.7-73.7); Nucleated Red Blood Cells % 0.1 % (0-0); Platelets 212 thou/uL (152-406); RBC Red Blood Cell Count 3.15 M/uL (4.33-5.43)
--- NOTE | 2024-07-06 15:00 | P.PN ---
Subjective Date of Service: 07/06/24 Chief Complaint: Fecal impaction Patient complaining of multiple vomiting episodes and claimed he has been vomiting into the trash. Emesis bags and the trash were inspected by me and no vomit was seen. No abdominal distention. Physical Examination - Vital Signs Temperature: 98.8 F Blood Pressure: 181/98 Pulse: 69 Respirations: 16 Pulse Ox (%): 99 Assessment And Plan - Plan Physical examination General: Alert and oriented x3, NAD, HEENT: Anicteric sclera Neck: Supple, no elevated JVD Heart: Heart sounds 1 and 2 normal, regular rhythm, normal rate, no pedal edema Lungs: Clear to auscultation bilaterally, adequate breath sounds bilaterally, no rhonchi or crackles. Abdomen: Soft, nondistended, nontender, normal bowel sounds. Extremities: No tenderness, no deformity Skin: Normal skin turgor, no rash, no nodules or ulcers. Neuro: No focal motor deficit. Normal speech. Psychiatry: Normal mood, no agitation. Assessment: Fecal impaction/stercoral colitis Diabetes mellitus type 2insulin-dependent with hyperglycemia Hypertension Hyperlipidemia Liver mass/cancer Chronic pain/opioid use Plan: Fecal impaction/stercoral colitis Digital rectal exam performed, stool near anus Patient unable to tolerate digital disimpaction due to severe pain Has attempted enemas, oral laxatives at home varying types without any significant treatment Also reports digital disimpaction was attempted at home Dr. Rios successfully performed fecal disimpaction under anesthesia today. On IV fluid, laxatives as needed. Continue home dose methadone. Patient need regular constipation prophylaxis. Diabetes mellitus type 2insulin-dependent with hyperglycemia Every 6 hours Accu-Chek, sliding scale insulin Hypertension Hyperlipidemia Continue home medications. Liver mass/cancer Was on chemo, radiation around 8 months ago but quit receiving treatment. Follow-up as outpatient. Chronic pain/opioid use Continue home dose methadone Constipation prophylaxis. 07/05/2024 Patient has had multiple bowel movements after fecal disimpaction. He was given a dose of Movantik. Patient complaining of abdominal pain yet, he is has been eating multiple packages of food brought from outside hospital and already drank multiple cans od soda. Vitals are stable. He has been afebrile, no leukocytosis and no signs of infection. He complained of chest pain earlier, however EKG shows no ischemic changes and troponin is negative. Patient is deemed stable for discharge. 07/06/2024 Continue supportive measures. Continue home dose oxycodone for chronic pain Clinically stable Follow-up with pain management as outpatient. Constipation prophylaxis reemphasized.
[2024-07-06] MEDS: PREGABALIN 50 MG CAP PO SCH (20:54)
[2024-07-06] MEDS: POTASSIUM CL 40 MEQ in NA CHLORIDE 0.9% 500 ML IV SCH (20:55)
[2024-07-07 06:44] LABS: Absolute Basophils 0.1 K/uL (0-0.5); Absolute Eosinophils 0.2 K/uL (0-0.5); Absolute Lymphocytes (CBC) 2.2 K/uL (0.7-4.9); Absolute Monocytes 0.4 K/uL (0.1-1.3); Absolute Neutrophil 3.8 K/uL (1.8-8.0); Basophils % 0.9 % (0-1.3); Eosinophils % 2.3 % (0-4.4); Lymphocytes % 33.4 % (15.3-44.8); MCH 31.5 pg (27.0-35.0); MCHC 35.5 g/dL (32.0-36.0); MCV 88.6 fL (80-100); Monocytes % 5.6 % (3.3-12.3); Neutrophils % 57.8 % (41.7-73.7); Platelets 224 thou/uL (152-406)
[2024-07-07 07:00] LABS: Anion Gap 7.5 mEq/L (5.0-15.0); Potassium 3.5 mEq/L (3.5-5.1)
[2024-07-07] MEDS: lisinopriL 5 MG TAB PO SCH (08:58)
[2024-07-07] MEDS: POTASSIUM CL SA 10 MEQ TAB PO ONE (08:58)
[2024-07-07] MEDS: AMLODIPINE 2.5 MG TAB PO SCH (09:00)
--- NOTE | 2024-07-07 13:33 | EKG ---
Test Date: 2024-07-05 Test Time: 11:44:31 General Scrap Worker: CHEN MEASUREMENT RESULTS: Intervals: Rate: 70 [place]: 142 QRSD: 78 QT: 384 QTc: 414 [place]: P: 56 [place]: 142 QRS: 42 T: 41 INTERPRETIVE STATEMENTS: Normal sinus rhythm Normal ECG No previous ECG available for comparison Electronically Signed On 07-07-24 13:20:14 CDT by Fracisco Hughes
[2024-07-07 17:51] VITALS: BP 183/96; TEMP 98.1
== END 2024-07-07 09:29 | disposition home or self-care (01) | DRG 389 ==
LOC: ER 12:41 → ERHOLD 15:57 → 2ND 16:33
PROVIDERS: ADMIT Hospitalist; ATTEND Internal Medicine
PROC: 0DCP7ZZ Extirpation of Matter from Rectum, Via Natural or Artificial Opening (ICD-10-PCS; principal; 2024-07-04 10:28)
DX: K56.41 Fecal impaction (principal); C22.9 Malignant neoplasm of liver, not specified as primary or secondary; N17.9 Acute kidney failure, unspecified; E11.65 Type 2 diabetes mellitus with hyperglycemia; K52.89 Other specified noninfective gastroenteritis and colitis; I10 Essential (primary) hypertension; Z89.511 Acquired absence of right leg below knee; E78.5 Hyperlipidemia, unspecified; F11.90 Opioid use, unspecified, uncomplicated; N18.9 Chronic kidney disease, unspecified; G89.4 Chronic pain syndrome
CPT/HCPCS: 36415; 71250; 74176; 80048; 80053; 80307; 81001; 82947; 83605; 83690; 84484; 85025; 85610; 85730; 87040; 93005; 96361; 96365; 96375; 99285; J0360; J1171; J1815; J2003; J2250; J2405; J2543; J2550; J2704; J3010; J3480; J3590; J7030; J7040

== ENCOUNTER 2024-11-27 02:08 | Inpatient (IN) | payer OTHER ==
[2024-11-27] MEDS ORDERED: ONDANSETRON 4 MG/2 ML VIAL ONE (02:37)
[2024-11-27] MEDS ORDERED: PANTOPRAZOLE 40 MG INJ ONE (02:37)
[2024-11-27] MEDS ORDERED: FENTANYL CITR 100 MCG/2 ML ONE (02:38)
[2024-11-27] MEDS ORDERED: NA CHLORIDE 0.9% 1,000 ML ONE ×2 (02:38→09:09)
[2024-11-27] MEDS ORDERED: NA CHLORIDE 0.9% 250 ML ONE (02:39)
[2024-11-27 02:49] LABS: Absolute Lymphocytes (CBC) 1.8 K/uL (0.7-4.9); Hematocrit 36.9 % (39.6-49.0); Hemoglobin 13.0 g/dL (13.6-17.9); MCH 31.3 pg (27.0-35.0); MCHC 35.1 g/dL (32.0-36.0); MCV 89.1 fL (80-100); MPV 7.8 fL (7.6-11.3); Nucleated RBC Absolute Count 0.0 (0-0); Nucleated Red Blood Cells % 0.0 % (0-0); PT Prothrombin Time 11.3 SECONDS (10-13.0); Protime INR 1.0; RBC Red Blood Cell Count 4.14 M/uL (4.33-5.43); White Blood Count 7.90 thou/uL (4.3-10.9)
[2024-11-27 03:06] LABS: Anion Gap 13.6 mEq/L (5.0-15.0); BUN Blood Urea Nitrogen 13 mg/dL (7-18); Potassium 3.6 mEq/L (3.5-5.1)
[2024-11-27 03:07] LABS: Albumin 3.1 g/dL (3.4-5.0); Albumin/Globulin Ratio 0.7 (1.1-1.8); Alkaline Phosphatase 193 U/L (45-117); Globulin 4.7 g/dL (2.3-3.5); Lipase 99 U/L (13-75); Magnesium 1.8 mg/dL (1.6-2.4); NT PRO-BNP 112 pg/mL (<125); Troponin High Sensitivity 4.8 pg/mL (<58.9)
[2024-11-27 03:10] LABS: ALT/SGPT < 14 U/L (16-61); AST/SGOT < 10 U/L (15-37); Bilirubin Indirect, Calculated 0.3 mg/dL (0.2-0.8)
[2024-11-27 03:11] LABS: Glucose Level 741 mg/dL (74-106)
[2024-11-27] MEDS ORDERED: HYDROMORPHONE HCL 1 MG/ML INJ ONE ×3 (03:23→09:08)
--- NOTE | 2024-11-27 03:35 | EDPHYS ---
Physician Documentation [facility] Name: Isaac Desai Age: 44 yrs Sex: Male : 1980 Arrival Date: 11/27/2024 Time: 02:08 Bed 2 Private MD: ED Physician Danilo Hess HPI: 11/27 03:02 This 44 yrs old Male presents to ER via EMS with complaints of Abdominal swapnil Pain, GI Bleeding. 03:02 The patient presents to the emergency department vomiting blood, a moderate amount, swapnil coffee grounds in nature, with multiple such episodes, with rectal bleeding, a moderate amount, melena. Onset: The symptoms/episode began/occurred 2 day(s) ago. Abdominal pain: none is appreciated, located in the right upper quadrant, left upper quadrant, right lower quadrant and left lower quadrant. Modifying factors: The symptoms are alleviated by nothing, the symptoms are aggravated by nothing. Associated signs and symptoms: The patient has no apparent associated signs or symptoms. Severity of symptoms: At their worst the symptoms were moderate in the emergency department the symptoms are unchanged. The patient has experienced similar episodes in the past, multiple times. 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 - Infectious Disease History:: Denies. - Family history:: not pertinent. - Social history:: Smoking status: Patient denies any tobacco usage or history of. ROS: 03:02 Constitutional: Negative for fever, chills, and weight loss, Eyes: Negative for injury, swapnil pain, redness, and discharge, ENT: Negative for injury, pain, and discharge, Neck: Negative for injury, pain, and swelling, Cardiovascular: Negative for chest pain, palpitations, and edema, Respiratory: Negative for shortness of breath, cough, wheezing, and pleuritic chest pain, Back: Negative for injury and pain, : Negative for injury, bleeding, discharge, and swelling, MS/Extremity: Negative for injury and deformity, Skin: Negative for injury, rash, and discoloration, Neuro: Negative for headache, weakness, numbness, tingling, and seizure, Psych: Negative for depression, anxiety, suicide ideation, homicidal ideation, and hallucinations, Allergy/Immunology: Negative for hives, rash, and allergies, Endocrine: Negative for neck swelling, polydipsia, polyuria, polyphagia, and marked weight changes, Hematologic/Lymphatic: Negative for swollen nodes, abnormal bleeding, and unusual bruising, 03:02 Abdomen/GI: Positive for abdominal pain, nausea, vomiting, abdominal cramps, hematemesis, black/tarry stool, Exam: 03:02 Constitutional: This is a well developed, well nourished patient who is awake, alert, swapnil and in no acute distress. Head/Face: Normocephalic, atraumatic. Eyes: Pupils equal round and reactive to light, extra-ocular motions intact. Lids and lashes normal. Conjunctiva and sclera are non-icteric and not injected. Cornea within normal limits. Periorbital areas with no swelling, redness, or edema. ENT: Nares patent. No nasal discharge, no septal abnormalities noted. Tympanic membranes are normal and external auditory canals are clear. Oropharynx with no redness, swelling, or masses, exudates, or evidence of obstruction, uvula midline. Mucous membranes moist. Neck: Trachea midline, no thyromegaly or masses palpated, and no cervical lymphadenopathy. Supple, full range of motion without nuchal rigidity, or vertebral point tenderness. No Meningismus. Chest/axilla: Normal chest wall appearance and motion. Nontender with no deformity. No lesions are appreciated. Cardiovascular: Regular rate and rhythm with a normal S1 and S2. No gallops, murmurs, or rubs. Normal PMI, no JVD. No pulse deficits. Respiratory: Lungs have equal breath sounds bilaterally, clear to auscultation and percussion. No rales, rhonchi or wheezes noted. No increased work of breathing, no retractions or nasal flaring. Back: No spinal tenderness. No costovertebral tenderness. Full range of motion. Male : Normal genitalia with no discharge or lesions. Skin: Warm, dry with normal turgor. Normal color with no rashes, no lesions, and no evidence of cellulitis. MS/ Extremity: Pulses equal, no cyanosis. Neurovascular intact. Full, normal range of motion., bilateral aka Neuro: Awake and alert, GCS 15, oriented to person, place, time, and situation. Cranial nerves II-XII grossly intact. Motor strength 5/5 in all extremities. Sensory grossly intact. Cerebellar exam normal. Normal gait. Psych: Awake, alert, with orientation to person, place and time. Behavior, mood, and affect are within normal limits. 03:02 ECG was reviewed by the Attending Physician. 03:02 Abdomen/GI: Inspection: abdomen appears normal, Bowel sounds: normal, Palpation: mild abdominal tenderness, moderate abdominal tenderness, Liver: no appreciated palpable abnormalities, Hernia: not appreciated, 03:13 ECG was reviewed by the Attending Physician. [facility] Vital Signs: 02:08 BP 188 / 109; Pulse 97; Resp 18; Temp 97.9; Pulse Ox 100% on R/A; Weight 70.76 kg; al5 Height 5 ft. 11 in. ; Pain 10/10; 02:30 BP 172 / 96; Pulse 99; Resp 18; Pulse Ox 99% on R/A; kb4 03:00 BP 153 / 86; Pulse 89; Resp 18; Pulse Ox 98% on R/A; kb4 03:30 BP 152 / 96; Pulse 88; Resp 18; Pulse Ox 98% on R/A; kb4 05:00 BP 161 / 87; Pulse 87; Resp 15; Pulse Ox 100% on R/A; al5 05:30 BP 145 / 82; Pulse 86; Resp 16; Pulse Ox 100% on R/A; al5 06:00 BP 135 / 82; Pulse 86; Resp 18; Pulse Ox 100% on R/A; kb4 06:30 BP 132 / 83; Pulse 84; Resp 18; Pulse Ox 100% on R/A; kb4 07:00 BP 128 / 75; Pulse 82; Resp 18; Pulse Ox 100% on R/A; kb4 02:08 Body Mass Index 21.76 (70.76 kg, 180.34 cm) al5 02:08 Pain Scale: Adult al5 MDM: 02:10 Medical Screening Exam initiated [facility] 03:06 Differential diagnosis: gastritis, hemorrhoids, hemorrhagic shock, varices. Data [facility] reviewed: vital signs, nurses notes, EMS record, lab test result(s), EKG, radiologic studies, CT scan, plain films. Consideration of Admission/Observation Escalation of care including admission/observation considered. I considered the following discharge prescriptions or medication management in the emergency department Medications were administered in the Emergency Department. See MAR. Independent interpretation of the following test(s) in the Emergency Department EKG: See my EKG interpretation above. Test considered but Not performed: Ultrasound no abd usg. Historians other than the Patient: EMS: ems well informed. Care significantly affected by the following chronic conditions: Diabetes, Cancer, Chronic Kidney Disease. Counseling: I had a detailed discussion with the patient and/or guardian regarding the historical points, exam findings, and any diagnostic results supporting the discharge/admit diagnosis, the presence of at least one elevated blood pressure reading (>120/80) during this emergency department visit, lab results, radiology results. 11/27 02:16 Order name: Basic Metabolic Panel; Complete Time: 03:21 [facility] 11/27 02:16 Order name: CBC with Diff; Complete Time: 03:21 [facility] 11/27 02:16 Order name: LFT's; Complete Time: 03:21 [facility] 11/27 02:16 Order name: Magnesium; Complete Time: 03:21 [facility] 11/27 02:16 Order name: NT PRO-BNP; Complete Time: 03:21 [facility] 11/27 02:16 Order name: PT-INR; Complete Time: 03:21 [facility] 11/27 02:16 Order name: Troponin HS; Complete Time: 03:21 [facility] 11/27 02:16 Order name: Lipase; Complete Time: 03:21 [facility] 11/27 02:16 Order name: UA Rfx Tate Cult if indicated [facility] 11/27 02:16 Order name: Type And Screen [facility] 11/27 03:03 Order name: Packed RBC Leukored [facility] 11/27 04:07 Order name: ABO/RH no charge [facility] 11/27 05:25 Order name: CBC with Automated Diff [facility] 11/27 05:25 Order name: CBC with Automated Diff [facility] 11/27 05:25 Order name: Comprehensive Metabolic Panel [facility] 11/27 05:25 Order name: Comprehensive Metabolic Panel [facility] 11/27 05:27 Order name: Hemoglobin [facility] 11/27 05:40 Order name: Glucose, Ancillary Testing [facility] 11/27 06:26 Order name: Glucose, Ancillary Testing [facility] 11/27 09:01 Order name: Glucose, Ancillary Testing [facility] 11/27 11:20 Order name: Glucose, Ancillary Testing [facility] 11/27 02:16 Order name: XRAY Chest (1 view) [facility] 11/27 03:33 Order name: Abdomen [facility] 11/27 02:16 Order name: EKG; Complete Time: 02:16 [facility] 11/27 05:25 Order name: CONS Physician Consult [facility] 11/27 02:16 Order name: Cardiac monitoring; Complete Time: [facility] 11/27 02:16 Order name: EKG - Nurse/Tech; Complete Time: [facility] 11/27 02:16 Order name: IV Saline Lock; Complete Time: [facility] 11/27 02:16 Order name: Labs collected and sent; Complete Time: [facility] 11/27 02:16 Order name: O2 Per Protocol; Complete Time: : [facility] 11/27 02:16 Order name: O2 Sat Monitoring; Complete Time: [facility] 11/27 02:16 Order name: IV Saline Lock - Large Bore; Complete Time: [facility] 11/27 02:16 Order name: NPO; Complete Time: : [facility] 11/27 03:54 Order name: Blood Glucose Level: 30 minutes after iv insulin; Complete Time: 06:16 [facility] EC:13 Rate is 93 beats/min. Rhythm is regular. QRS [place] is Normal. NC interval is normal. QRS swapnil interval is normal. QT interval is normal. No Q waves. T waves are Normal. No ST changes noted. Clinical impression: NSR w/ Non-specific ST/T Changes and No evidence of ischemia. Interpreted by me. Reviewed by me. Administered Medications: 03:01 Drug: Ondansetron IVP 8 mg IVP once; over 2 minutes Route: IVP; Site: left antecubital; kb4 03:03 Follow up: Response: No adverse reaction kb4 03:02 Drug: NS 0.9% IV 1000 ml IV at 1000 ml once; to be given as a bolus over 60 minutes kb4 Route: IV; Rate: 1000 ml; Site: left antecubital; 05:54 Follow up: Response: No adverse reaction; IV Status: Completed infusion; IV Intake: al5 1000ml 03:02 Drug: Pantoprazole IVP 80 mg IVP once Route: IVP; Site: left antecubital; kb4 03:05 Follow up: Response: No adverse reaction kb4 03:02 Drug: Pantoprazole IV 8 mg/hr IV at 25 ml/hr continuous; (Standard dilution is 80 mg in kb4 250 mL NS) Route: IV; Rate: 25 ml/hr; Site: left antecubital; 05:54 Follow up: Response: No adverse reaction; IV Status: Infusion continued upon admission al5 03:02 Drug: fentaNYL (PF) IVP 50 mcg IVP once Route: IVP; Site: left antecubital; kb4 03:05 Follow up: Response: No adverse reaction kb4 03:43 Drug: HYDROmorphone IVP 1 mg IVP once Route: IVP; Site: left antecubital; kb4 03:44 Follow up: Response: No adverse reaction kb4 05:31 Drug: Insulin Glargine Sub-Q 30 units Sub-Q once {Co-Signature: kb4 (Kiana Badillo RN).} al5 Route: Sub-Q; Site: left lower abdomen; 05:33 Follow up: Response: No adverse reaction kb4 05:33 Drug: Insulin Regular Human IVP 10 units IVP once {Co-Signature: al5 (Suzi Schneider RN).} Route: IVP; Site: left antecubital; 05:33 Follow up: Response: No adverse reaction kb4 06:30 Not Given (Other Intervention Used): hydromorphone1 mg IM once al5 06:30 Drug: HYDROmorphone IVP 1 mg IVP once Route: IVP; Site: left antecubital; al5 07:01 Follow up: Response: No adverse reaction kb4 Point of Care Testing: Blood Glucose: 06:16 Blood Glucose: 391 mg/dL; al5 08:50 Blood Glucose: 324 mg/dL; jp5 Ranges: Critical Glucose Levels:Adult <50 mg/dl or >400 mg/dl <40 mg/dl or >180 mg/dl Disposition Summary: 11/27/24 03:34 Hospitalization Ordered Notes: Hospitalization Status: Inpatient Admission swapnil Provider: Nino Lassiter cha Condition: Fair swapnil Problem: new swapnil Symptoms: have improved swapnil Bed/Room Type: Standard swapnil Location: Telemetry/MedSurg (Inpatient)(11/27/24 10:48) bd Room Assignment: 221(11/27/24 10:48) bd Diagnosis - Abdominal pain, Generalized swapnil - Vomiting swapnil - GI Bleed/ Gastrointestinal hemorrhage, unspecified - upper swapnil - Type 1 diabetes mellitus with hyperglycemia swapnil - Chronic kidney disease, unspecified swapnil Forms: - Medication Reconciliation Form swapnil - SBAR form swapnil - Leadership Thank You Letter swapnil Critical care time excluding procedures: 03:54 Critical care time: Bedside Care: 25 minutes, Consultation: 10 minutes, Family swapnil Intervention: 10 minutes. Total time: 45 minutes Signatures: Dispatcher [employer] EDMS Maura Fairchild Corey, MD MD cha Garcia, Cindy, RN RN Suzi Reed, RN RN Kiana Aleman RN RN kb4 Suzi Schneider RN, Kayla RN kb4 Corrections: (The following items were deleted from the chart) 03:04 02:08 Allergies: Cipro; al5 al5 03:04 02:08 Allergies: Flagyl; al5 al5 03:04 02:08 PMHx: Endometriosis of vagina; al5 al5 03:33 02:16 Abdomen Angio+CT.RAD.BRZ ordered. EDMS EDMS 03:33 02:16 Pelvis Angio+CT.RAD.BRZ ordered. EDMS EDMS 05:02 03:34 Telemetry/MedSurg (Inpatient) swapnil cg 05:02 03:34 swapnil cg 10:48 05:02 BR ER HOLD cg bd 10:48 05:02 ERHOLD- cg bd
--- NOTE | 2024-11-27 03:35 | ER ---
Nurse's Notes [facility] Name: Isaac Desai Age: 44 yrs Sex: Male : 1980 Arrival Date: 11/27/2024 Time: 02:08 Bed 2 Private MD: Diagnosis: Abdominal pain, Generalized;Vomiting;GI Bleed/ Gastrointestinal hemorrhage, unspecified-upper;Type 1 diabetes mellitus with hyperglycemia;Chronic kidney disease, unspecified Presentation: 11/27 02:08 Chief complaint: Patient states: c/o n/v/d along with abdominal and chest pain since al5 [id number] yesterday. states he has been having coffee ground emesis. Coronavirus screen: At this time, the client does not indicate any symptoms associated with coronavirus-19. Ebola Screen: No symptoms or risks identified at this time. Initial Sepsis Screen: Does the patient meet any 2 criteria? HR > 90 bpm. Does the patient have a suspected source of infection? No. Patient's initial sepsis screen is negative. Risk Assessment: Do you want to hurt yourself or someone else? Patient reports no desire to harm self or others. Onset of symptoms was November 26, 2024. 02:08 Method Of Arrival: EMS: [facility] al5 02:08 Acuity: CHAPARRITA 3 al5 Triage Assessment: 02:08 General: Appears in no apparent distress. uncomfortable, ill, slender, well groomed, al5 Behavior is calm, cooperative. Pain: Complains of pain in chest and abdomen Pain currently is 10 out of 10 on a pain scale. EENT: No signs and/or symptoms were reported regarding the EENT system. Neuro: Level of Consciousness is awake, alert, obeys commands, Oriented to person, place, time, situation. Cardiovascular: Capillary refill < 3 seconds Patient's skin is warm and dry. Respiratory: Airway is patent Respiratory effort is even, unlabored, Respiratory pattern is regular, symmetrical. GI: Abdomen is flat, non-distended, Bowel sounds present X 4 quads. Abd is soft X 4 quads Abdomen is tender to palpation X 4 quads. Reports lower abdominal pain, upper abdominal pain, diarrhea, nausea, vomiting, coffee ground emesis. : No signs and/or symptoms were reported regarding the genitourinary system. Derm: Skin is intact, is healthy with good turgor, Skin is pink, warm \T\ dry. normal. Musculoskeletal: Circulation, motion, and sensation intact. Range of motion: intact in all extremities. 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 - Infectious Disease History:: Denies. - Family history:: not pertinent. - Social history:: Smoking status: Patient denies any tobacco usage or history of. Screenin:09 [facility] ED Fall Risk Assessment (Adult) History of falling in the last 3 months, al5 including since admission No falls in past 3 months (0 pts) Confusion or Disorientation No (0 pts) Intoxicated or Sedated No (0 pts) Impaired Gait Yes (1 pt) Mobility Assist Device Used Yes (1 pt) Altered Elimination No (0 pt) Score/Fall Risk Level 0 - 2 = Low Risk Oriented to surroundings, Maintained a safe environment, Hourly rounding (assess needs \T\ fall precautionary measures) done. Abuse screen: Denies threats or abuse. Denies injuries from another. Nutritional screening: No deficits noted. Tuberculosis screening: No symptoms or risk factors identified. Assessment: 02:08 Reassessment: see triage assessment. al5 03:06 Reassessment: Patient appears in no apparent distress at this time. No changes from al5 previously documented assessment. Patient and/or family updated on plan of care and expected duration. Pain level reassessed. Patient is alert, oriented x 3, equal unlabored respirations, skin warm/dry/pink. 04:21 Reassessment: Patient appears in no apparent distress at this time. Patient and/or al5 family updated on plan of care and expected duration. Pain level reassessed. Patient is alert, oriented x 3, equal unlabored respirations, skin warm/dry/pink. pain has decreased. 05:42 Reassessment: Patient appears in no apparent distress at this time. No changes from al5 previously documented assessment. Patient and/or family updated on plan of care and expected duration. Pain level reassessed. Patient is alert, oriented x 3, equal unlabored respirations, skin warm/dry/pink. 07:01 Reassessment: No changes from previously documented assessment. Patient and/or family kb4 updated on plan of care and expected duration. Pain level reassessed. Patient is alert, oriented x 3, equal unlabored respirations, skin warm/dry/pink. Patient states symptoms have improved. 09:59 General: Appears in no apparent distress. uncomfortable, Behavior is calm, cooperative, cm10 Assumed care of patient at this time. Pt currently with protonix infusion. IV sites clean and dry. P complaining of abdominal pain. Updated on plan of care. . Neuro: No deficits noted. Level of Consciousness is awake, alert, obeys commands, Oriented to person, place, time, situation, Appropriate for age. Respiratory: No deficits noted. Airway is patent Respiratory effort is even, unlabored, Respiratory pattern is regular, symmetrical. Musculoskeletal: Amputation of right aka. Vital Signs: 02:08 BP 188 / 109; Pulse 97; Resp 18; Temp 97.9; Pulse Ox 100% on R/A; Weight 70.76 kg; al5 Height 5 ft. 11 in. ; Pain 10/10; 02:30 BP 172 / 96; Pulse 99; Resp 18; Pulse Ox 99% on R/A; kb4 03:00 BP 153 / 86; Pulse 89; Resp 18; Pulse Ox 98% on R/A; kb4 03:30 BP 152 / 96; Pulse 88; Resp 18; Pulse Ox 98% on R/A; kb4 05:00 BP 161 / 87; Pulse 87; Resp 15; Pulse Ox 100% on R/A; al5 05:30 BP 145 / 82; Pulse 86; Resp 16; Pulse Ox 100% on R/A; al5 06:00 BP 135 / 82; Pulse 86; Resp 18; Pulse Ox 100% on R/A; kb4 06:30 BP 132 / 83; Pulse 84; Resp 18; Pulse Ox 100% on R/A; kb4 07:00 BP 128 / 75; Pulse 82; Resp 18; Pulse Ox 100% on R/A; kb4 02:08 Body Mass Index 21.76 (70.76 kg, 180.34 cm) al5 02:08 Pain Scale: Adult al5 ED Course: 02:08 Patient placed in the treatment room, in view of staff members, on monitoring coordinator, on al5 pulse oximetry. 02:09 Patient arrived in ED. [email or web address] 02:09 No provider procedures requiring assistance completed. al5 02:09 Patient has correct armband on for positive identification. Bed in low position. Call al5 light in reach. Side rails up X2. Provided Education on: plan of care. 02:10 Danilo Hess MD is Attending Physician. swapnil 02:28 Inserted saline lock: 18 gauge in right in left antecubital area, using aseptic kb4 technique. Blood collected. Flushed with 10 mL NS. 02:32 Suzi Schneider, JUAN JOSE is Primary Nurse. al5 02:50 XRAY Chest (1 view) In Process Unspecified. EDMS 03:01 Triage completed. al5 03:23 Nino Lassiter MD is Hospitalizing Provider. swapnil 04:09 Abdomen In Process Unspecified. EDMS 09:00 Patient admitted, IV remains in place. cm10 Administered Medications: 03:01 Drug: Ondansetron IVP 8 mg IVP once; over 2 minutes Route: IVP; Site: left antecubital; kb4 03:03 Follow up: Response: No adverse reaction kb4 03:02 Drug: NS 0.9% IV 1000 ml IV at 1000 ml once; to be given as a bolus over 60 minutes kb4 Route: IV; Rate: 1000 ml; Site: left antecubital; 05:54 Follow up: Response: No adverse reaction; IV Status: Completed infusion; IV Intake: al5 1000ml 03:02 Drug: Pantoprazole IVP 80 mg IVP once Route: IVP; Site: left antecubital; kb4 03:05 Follow up: Response: No adverse reaction kb4 03:02 Drug: Pantoprazole IV 8 mg/hr IV at 25 ml/hr continuous; (Standard dilution is 80 mg in kb4 250 mL NS) Route: IV; Rate: 25 ml/hr; Site: left antecubital; 05:54 Follow up: Response: No adverse reaction; IV Status: Infusion continued upon admission al5 03:02 Drug: fentaNYL (PF) IVP 50 mcg IVP once Route: IVP; Site: left antecubital; kb4 03:05 Follow up: Response: No adverse reaction kb4 03:43 Drug: HYDROmorphone IVP 1 mg IVP once Route: IVP; Site: left antecubital; kb4 03:44 Follow up: Response: No adverse reaction kb4 05:31 Drug: Insulin Glargine Sub-Q 30 units Sub-Q once {Co-Signature: steve (Kiana Badillo RN).} al5 Route: Sub-Q; Site: left lower abdomen; 05:33 Follow up: Response: No adverse reaction kb4 05:33 Drug: Insulin Regular Human IVP 10 units IVP once {Co-Signature: al5 (Suzi Schneider RN).} Route: IVP; Site: left antecubital; 05:33 Follow up: Response: No adverse reaction kb4 06:30 Not Given (Other Intervention Used): hydromorphone1 mg IM once al5 06:30 Drug: HYDROmorphone IVP 1 mg IVP once Route: IVP; Site: left antecubital; al5 07:01 Follow up: Response: No adverse reaction kb4 Medication: 03:07 VIS not applicable for this client. al5 Point of Care Testing: Blood Glucose: 06:16 Blood Glucose: 391 mg/dL; al5 08:50 Blood Glucose: 324 mg/dL; jp5 Ranges: Intake: 05:54 IV: 1000ml; Total: 1000ml. al5 Outcome: 03:34 Decision to Hospitalize by Provider. swapnil 09:00 Admitted to ER Hold. Please see [facility] for further documentation. cm10 09:00 Condition: good 09:00 Instructed on the need for admit, 11:44 Patient left the ED. cm10 Signatures: Dispatcher [employer] EDMS Danilo Hess MD MD cha Jeffries, Jennifer [email or web address] Anna Silva, RN RN cm10 Miranda Payne RN RN [email or web address] Suzi Schneider RN RN Kiana Aleman, RN RN kb4 Suzi Schneider RN, Kayla RN kb4 Corrections: (The following items were deleted from the chart) 03:04 02:08 Allergies: Cipro; al5 al5 03:04 02:08 Allergies: Flagyl; al5 al5 03:04 02:08 PMHx: Endometriosis of vagina; al5 al5 03:08 02:08 GI: Abdomen is flat, non-distended, Reports lower abdominal pain, upper abdominal al5 pain, diarrhea, nausea, vomiting, coffee ground emesis al5
--- NOTE | 2024-11-27 05:17 | P.HP ---
Certification for Inpatient Patient admitted to: Inpatient With expected LOS: >2 Midnights Practitioner: I am a practitioner with admitting privileges, knowledge of patient current condition, hospital course, and medical plan of care. Services: Services provided to patient in accordance with Admission requirements found in Title 42 Section 412.3 of the Code of Federal Regulations Patient History Date of Service: 11/27/24 Reason for admission: GI Bleed History of Present Illness: 44 yrs old Male With past medical history of diabetes, hypertension, hyperlipidemia, liver cancer, chronic pain opioid usage on palliative care presents to ER with complaints of Abdominal Pain, GI Bleeding. The patient presents to the emergency department vomiting blood, a moderate amount, coffee grounds in nature, with multiple such episodes, with rectal bleeding, a moderate amount, melena. Onset: The symptoms/episode began/occurred 2 day(s) ago. Associated with intractable abdominal pain. No fever or chills. Denies any chest pain or shortness of breath. Patient was assessed in the ER and was admitted for further management of GI bleed and hyperglycemia Allergies morphine Adverse Reaction (Uncoded 06/08/24 03:04) Shortness of breath Home medications list reviewed: Yes Home Medications: Amlodipine [Norvasc*] 2.5 mg PO DAILY 06/09/24 Insulin Glargine,Hum.rec.anlog [Lantus Solostar] 5 units SQ DAILY 06/09/24 Insulin Lispro [Humalog Rojelio Kwikpen] See Protocol SQ ACHS 06/09/24 Oxycodone HCl 30 mg PO Q6HP PRN 06/09/24 Pregabalin 100 mg PO BID 06/09/24 lisinopriL [Lisinopril] 5 mg PO DAILY 06/09/24 Sennosides [Senokotxtra] 17.2 mg PO BID #60 tab 07/05/24 Ciprofloxacin HCl [Cipro 500 MG Tablet] 500 mg PO BID #10 tab 07/06/24 metroNIDAZOLE [Flagyl*] 500 mg PO TID #15 tab 07/06/24 Polyethylene Glycol 3350 [Miralax] 17 gm PO DAILY PRN #30 packet 07/07/24 - Past Medical/Surgical History Diabetic: Yes Past Medical History: Reviewed- Non-Contributory -: Insulin-dependent diabetes -: Hypertension -: Chronic pain -: Liver mass/cancer Past Surgical History: Reviewed- Non-Contributory -: Cholecystectomy -: Right BKAtraumatic -: Back surgery Psychosocial/ Personal History: Lives at home with his children/girlfriend - Family History Family History: Reviewed- Non-Contributory - Social History Smoking Status: Former smoker Alcohol use: No CD- Drugs: No Caffeine use: Yes Review of Systems 10-point ROS is otherwise unremarkable Physical Examination - Vital Signs Temperature: 97.8 F Blood Pressure: 138/68 Pulse: 72 Respirations: 18 Pulse Ox (%): 94 - Physical Exam General: Alert, In no apparent distress, Oriented x3 HEENT: Atraumatic, Normocephalic Neck: Supple Respiratory: Clear to auscultation bilaterally, Normal air movement Cardiovascular: Regular rate/rhythm, Normal S1 S2 Capillary refill: <2 Seconds Gastrointestinal: Soft and benign, W/out hepatosplenomegaly Musculoskeletal: No clubbing, No swelling, Other (Right BKA) Integumentary: No rashes Neurological: Other (Alert awake nonfocal) Lymphatics: No axilla or inguinal lymphadenopathy - Studies Laboratory Data (last 24 hrs) 11/27/24 11/27/24 11/27/24 02:24 02:24 02:24 WBC 7.90 Hgb 13.0 L Hct 36.9 L Plt Count 244 PT 11.3 INR 1.00 Sodium 130 L Potassium 3.6 BUN 13 Creatinine 1.74 H Glucose 741 H* Magnesium 1.8 Total Bilirubin 0.5 AST < 10 L ALT < 14 L Alkaline Phosphatase 193 H Lipase 99 H Assessment and Plan - Plan GI bleed Complains of hematemesis/melena History of liver cancer Will monitor H&H closely Transfuse as needed GI consult Diabetes mellitus type 2insulin-dependent with hyperglycemia Every 6 hours Accu-Chek Insulin sliding scale Hypertension Hyperlipidemia Continue home medications when verified Liver mass/cancer Palliative care Chronic pain/opioid use Continue home medications DVT PPX: SCD Discharge Plan: Home Plan to discharge in: 48 Hours - Advance Directives Does patient have a Living Will: No Does patient have a Durable POA for Healthcare: No - Code Status/Comfort Care Code Status: Full Code Time Spent Managing Pts Care (In Minutes): 48
[2024-11-27] MEDS ORDERED: ACETAMINOPHEN 325 MG TABLET PO PRN (05:20)
[2024-11-27] MEDS ORDERED: INSULIN GLARGINE 100 UNIT/ML SQ ONE (05:21)
[2024-11-27] MEDS ORDERED: GLUCAGON 1 MG/VIAL IM PRN (05:23)
[2024-11-27] MEDS ORDERED: SODIUM CHLORIDE 0.9% 10ML INJ IV PRN (05:25)
--- NOTE | 2024-11-27 05:45 | RAD REPORT ---
EXAM: CT Abdomen and Pelvis Without Intravenous Contrast CLINICAL HISTORY: The patient is 44 years old and is Male; Abd pain;GI bleed TECHNIQUE: Axial computed tomography images of the abdomen and pelvis without intravenous contrast. Sagittal and coronal reformatted images were created and reviewed. This CT exam was performed using one or more of the following dose reduction techniques: automated exposure control, adjustmen t of the mA and/or kV according to patient size, and/or use of iterative reconstruction technique. COMPARISON: No relevant prior studies available. FINDINGS: Lung bases: Unremarkable. No mass. No consolidation. ABDOMEN: Liver: There is a 4.7 x 2.8 x 4.9 cm nonspecific hypoattenuating lesion in the posterior inferior liver. Gallbladder and bile ducts: Gallbladder is surgically absent. No ductal dilation. Pancreas: Unremarkable. No ductal dilation. Spleen: Splenomegaly. Adrenals: Unremarkable. No mass. Kidneys and ureters: Mild bilateral perinephric stranding which may be chronic. No obstructing stones. No hydronephrosis. Stomach and bowel: Diffuse rectal mucosal thickening. No obstruction. PELVIS: Appendix: The appendix is normal. Bladder: Unremarkable. Reproductive: Unremarkable as visualized. ABDOMEN and PELVIS: Intraperitoneal space: Unremarkable. No free air. No significant fluid collection. Bones/joints: No acute fracture. No dislocation. Soft tissues: Unremarkable. Vasculature: Unremarkable. No abdominal aortic aneurysm. Lymph nodes: Unremarkable. No enlarged lymph nodes. IMPRESSION: 1. Diffuse rectal mucosal thickening. Findings can be seen with proctitis. 2. Gallbladder is surgically absent. 3. Splenomegaly. 4. There is a 4.7 x 2.8 x 4.9 cm nonspecific hypoattenuating lesion in the posterior inferior liver . 5. Additional non-emergent findings as above. Electronically signed by: Reji Douglas MD 11/27/2024 05:41 AM CDT 8 Due to temporary technical issues with the PACS/Indicative Software reporting system, reports are being bert d by the in-house radiologist without review as a courtesy to ensure prompt reporting the interpreting radiologist is fully responsible for the content of the report. Transcribed Date/Time: 11/27/2024 5:45 AM
--- NOTE | 2024-11-27 05:49 | RAD REPORT ---
INDICATION: ABDOMINAL DISTENTION COMPARISON: No existing relevant imaging studies are available FINDINGS: Single frontal view of the chest was obtained. SUPPORT DEVICES: None HEART/MEDIASTINUM: Cardiomediastinal contours are normal. LUNGS/PLEURA: Lungs are clear. No pleural effusion or pneumothorax. OTHER: No other significant findings. IMPRESSION: No acute findings. Electronically signed by: Isaac Fuentes DO 11/27/2024 02:56 AM CDT RP NR Due to temporary technical issues with the PACS/[employer] reporting system, reports are being bert d by the in-house radiologist without review as a courtesy to ensure prompt reporting the interpreting radiologist is fully responsible for the content of the report. Transcribed Date/Time: 11/27/2024 5:48 AM
[2024-11-27 05:57] LABS: Sqamous Epithelial None Seen /HPF (None Seen); Urine Culture Reflex Order NOT NEEDED; Urine Microscopic Reflex YN ORDER UMIC
[2024-11-27] MEDS: OCTREOTIDE 500 MCG in NA CHLORIDE 0.9% 500 ML IV SCH ×2 (06:00→09:55)
[2024-11-27] MEDS: PANTOPRAZOLE 40 MG INJ IVP SCH (09:00)
[2024-11-27] MEDS ORDERED: INSULIN REGULAR (HUMAN) 100 UNIT/ML ONE (09:09)
[2024-11-27] MEDS: INSULIN REGULAR (HUMAN) 100 UNIT/ML SQ SCH (09:20)
[2024-11-27] MEDS: NA CHLORIDE 0.9% 1,000 ML IV SCH (09:20)
[2024-11-27 09:22] VITALS: BMI 21.7
[2024-11-27] MEDS: ONDANSETRON 4 MG/2 ML VIAL IV PRN (12:58)
[2024-11-27] MEDS: HYDROMORPHONE HCL 1 MG/ML INJ IV PRN (12:58)
[2024-11-27 13:16] VITALS: O2SAT 100
[2024-11-27] MEDS ORDERED: OXYCODONE HCL 30 MG PO PRN ×2 (15:12→16:33)
[2024-11-27] MEDS ORDERED: POLYETHYL GLY 3350 17 GM/DOSE PO PRN (15:12)
--- NOTE | 2024-11-27 16:36 | P.PN ---
Subjective Date of Service: 11/27/24 Chief Complaint: GI Bleed Subjective: No new changes <Jimenez Palma - Last Filed: 11/27/24 17:59> Date of Service: 11/27/24 <Ginny Cornejo - Last Filed: 11/28/24 07:54> Review of Systems General: Weakness Eyes: Unremarkable ENT: Unremarkable Cardiovascular: Chest Pain Gastrointestinal: Abdominal Pain Musculoskeletal: Unremarkable Integumentary: Unremarkable Neurological: Unremarkable Lymphatics: Unremarkable <Jimenez Palma - Last Filed: 11/27/24 17:59> Physical Examination - Vital Signs Temperature: 98.1 F Blood Pressure: 137/81 Pulse: 75 Respirations: 18 Pulse Ox (%): 99 - Physical Exam General: Alert, In no apparent distress, Oriented x3, Cooperative HEENT: Atraumatic, PERRLA, EOMI Neck: Supple, JVD not distended Respiratory: Normal air movement Cardiovascular: No edema, Regular rate/rhythm, Normal S1 S2 Capillary refill: <2 Seconds Gastrointestinal: Normal bowel sounds, Tenderness Musculoskeletal: No tenderness Integumentary: No rashes Neurological: Normal speech, Normal tone, Normal affect Lymphatics: No axilla or inguinal lymphadenopathy - Studies Laboratory Data (last 24 hrs) 11/27/24 11/27/24 11/27/24 02:24 02:24 02:24 WBC 7.90 Hgb 13.0 L Hct 36.9 L Plt Count 244 PT 11.3 INR 1.00 Sodium 130 L Potassium 3.6 BUN 13 Creatinine 1.74 H Glucose 741 H* Magnesium 1.8 Total Bilirubin 0.5 AST < 10 L ALT < 14 L Alkaline Phosphatase 193 H Lipase 99 H <Jimenez Palma - Last Filed: 11/27/24 17:59> Assessment And Plan - Plan Interval history. 11/27/2024 Patient seen at bedside. Patient complaining of chest pain. Serial troponins pending. Cardiology consulted. Recommendations appreciated. Patient currently denies any episodes of hematochezia and hematemesis. Quality Control Engineer on board. Will continue to monitor H&H. Fall precautions. Continue supportive care. GI bleed Complains of hematemesis/melena History of liver cancer Will monitor H&H closely Transfuse as needed GI consult Diabetes mellitus type 2insulin-dependent with hyperglycemia Every 6 hours Accu-Chek Insulin sliding scale Hypertension Hyperlipidemia Continue home medications when verified Liver mass/cancer Palliative care Chronic pain/opioid use Continue home medications DVT PPX: SCD Discharge Plan: Home Plan to discharge in: Greater than 2 days - Code Status/Comfort Care Code Status Assessed: Yes Physician Review: Patient Assessed, Agree with Above Assessment and Plan Critical Care: No <Jimenez Palma - Last Filed: 11/27/24 17:59> Date of Service: 11/27/24 Chart has been reviewed. Events of the last 24 hours have been noted. Case discussed with MARYJANE. I performed a substantial part of the MDM during this patient's care today. I personally made or approved the documented management plan and acknowledge its risk of complications. I agree with the findings and documentation provided in the MARYJANE's notes Patient states that he has stage IV liver cancer and is on palliative care and may be progressing to hospice. He is requesting stronger pain medication. He states that he is taking Dilaudid 3 mg every 3 hours at home orally as well as oxycodone 30 mg every 4 hours at home. Will review this and will adjust medications accordingly. Will discuss prognosis and CODE STATUS. <Ginny Cornejo - Last Filed: 11/28/24 07:54>
[2024-11-27] MEDS: OXYCODONE HCL 5 MG TAB PO PRN (16:37)
[2024-11-27] MEDS: METHYLPREDNISOLONE 125 MG INJ IV ONE (17:38)
[2024-11-27] MEDS: PIPER TAZO 3.375 GM in NA CHLORIDE 0.9% 100 ML IV ONE (17:39)
--- NOTE | 2024-11-27 18:01 | P.PN ---
Date of Service: 11/27/24 Patient states that he has stage IV liver cancer and is on palliative care and may be progressing to hospice. He is requesting stronger pain medication. He states that he is taking Dilaudid 3 mg every 3 hours at home orally as well as oxycodone 30 mg every 4 hours at home. Will review this and will adjust medications accordingly. Will discuss prognosis and CODE STATUS.
[2024-11-27] MEDS ORDERED: HYDROMORPHONE ORAL 2 MG TAB PO PRN (20:09)
[2024-11-27] MEDS: PREGABALIN 50 MG CAP PO SCH (21:00)
[2024-11-27] MEDS ORDERED: HOME MED 1 EA UNK (Pregabalin [Pregabalin] 100 MG Capsule) PO SCH (21:00)
[2024-11-27] MEDS: HYDROMORPHONE HCL 2 MG/ML inj IV PRN (21:17)
[2024-11-28] MEDS: PIPER TAZO 3.375 GM in NA CHLORIDE 0.9% 100 ML IV SCH (01:56)
[2024-11-28 04:40] LABS: Absolute Lymphocytes (CBC) 0.6 K/uL (0.7-4.9); Hematocrit 34.6 % (39.6-49.0); Hemoglobin 12.0 g/dL (13.6-17.9); MCH 31.6 pg (27.0-35.0); MCHC 34.5 g/dL (32.0-36.0); MCV 91.4 fL (80-100); MPV 7.7 fL (7.6-11.3); Nucleated RBC Absolute Count 0.0 (0-0); Nucleated Red Blood Cells % 0.1 % (0-0); RBC Red Blood Cell Count 3.79 M/uL (4.33-5.43); White Blood Count 6.20 thou/uL (4.3-10.9)
[2024-11-28 05:00] LABS: ALT/SGPT 16.0 U/L (16-61); AST/SGOT 14.0 U/L (15-37); Albumin 2.9 g/dL (3.4-5.0); Albumin/Globulin Ratio 0.7 (1.1-1.8); Alkaline Phosphatase 123.0 U/L (45-117); Anion Gap 15.8 mEq/L (5.0-15.0); BUN Blood Urea Nitrogen 18.0 mg/dL (7-18); Globulin 4.1 g/dL (2.3-3.5); Potassium 4.8 mEq/L (3.5-5.1)
[2024-11-28 05:04] LABS: Glucose Level 855.0 mg/dL (74-106)
[2024-11-28] MEDS: Oxycodone HCl/Acetaminophen 5/325 MG TAB PO PRN (05:09)
[2024-11-28 05:12] LABS: Blood Morphology Comment NOT SEEN (NOT SEEN); Differential Total Cells Count 100; Segmented Neutrophils 84 % (40-80)
[2024-11-28] MEDS: INSULIN REGULAR (HUMAN) 100 UNIT/ML SQ ONE (06:15)
[2024-11-28] MEDS: AMLODIPINE 2.5 MG TAB PO SCH (08:41)
[2024-11-28] MEDS: INSULIN GLARGINE 100 UNIT/ML SQ SCH (08:42)
[2024-11-28] MEDS ORDERED: HOME MED 1 EA UNK (Insulin Glargine,Hum.Rec.Anlog [Lantus Solostar] 100 UNIT/ML Insuln.Pen SQ SCH (09:00)
[2024-11-28] MEDS: OCTREOTIDE 500 MCG in NA CHLORIDE 0.9% 500 ML IV SCH (09:55)
[2024-11-28] MEDS: INSULIN REGULAR (HUMAN) 100 UNIT/ML IV ONE (09:55)
--- NOTE | 2024-11-28 10:13 | P.PN ---
Date of Service: 11/28/24 Subjective: slight improvement. no BM while admitted, but reports days of dark black stool h/o GI bleed 3-4 years ago epigastrica nd lower pelvic/abd pain Physical Exam: Gen: Alert, Oriented, NAD CV: Regular rate and rhythm, no edema Pulm: Nonlabored respirations on room air, clear bilaterally Abdomen: Soft, tender to palpation in epigastrium and lower abdomen, nondistended Integumentary: Right BKA Neuro: Normal strength, normal affect Problem List: Acute GI bleed Hematemesis/Melena Chest pain; atypical IDDM2 with severe hyperglycemia Hypertension Hyperlipidemia Hx stage IV liver cancer Chronic pain / opioid use Acute GI bleed Hematemesis/Melena on admission, presents with abdominal pain, bloody coffee ground emesis, melena for [address] abd/pelvis (11/27): Diffuse rectal mucosal thickening. Splenomegaly. 4.7x2.8x4.9cm nonspecific lesion in posterior inferior liver. Mild bilateral perinephric stranding which may be chronic. Hgb 13 on admission; repeat 12.0 Start octreotide drip IV protonix, IV fluids Continue IV Zosyn (11/28-) GI Consulted NPO for now may need EGD. awaiting GI recs Chest pain; atypical atypical chest pain, likely GI in nature. Troponins negative x4. Monitor on telemetry Cardio consulted. Dr. Hughes recommending echo If echo normal, no further work up needed. IDDM2 with severe hyperglycemia, partly steroid induced accu-cheks, SSI confirm home insulin regimen Start semglee 5u daily. Titrate as needed Given 60mg IV solu-medrol yesterday Hypertension Hyperlipidemia confirm home meds, restart as appropriate Hx stage IV liver cancer Chronic pain / opioid use Has known stage IV liver cancer on palliative care. Requesting stronger pain medication Takes Dilaudid 3mg q3h and oxycodone 30mg q4h at home VTE: SCD GI: IV protonix BID Dispo: home, ~24-48hrs pending GI, bleeding
--- NOTE | 2024-11-28 12:15 | P.CNS ---
Date of Consult: 11/28/24 Chief Complaint: GI Bleed History of Present Illness: Patient with PMH of end stage liver cancer on palliative care, presented with melena, GI bleed, complain of abdominal pain and epigastric/chest pain, denies having cardiac history, no left side chest pain, no palpitations, no breathing problems, no syncope. Allergies morphine Adverse Reaction (Uncoded 06/08/24 03:04) Shortness of breath Home medications list reviewed: Yes Home Medications: Amlodipine [Norvasc*] 2.5 mg PO DAILY 06/09/24 Insulin Glargine,Hum.rec.anlog [Lantus Solostar] 5 units SQ BEDTIME 06/09/24 Insulin Lispro [Humalog Rojelio Kwikpen] See Protocol SQ ACHS 06/09/24 Oxycodone HCl 30 mg PO Q6HP PRN 06/09/24 Pregabalin 100 mg PO BID 06/09/24 lisinopriL [Lisinopril] 5 mg PO DAILY 06/09/24 Polyethylene Glycol 3350 [Miralax] 17 gm PO DAILY PRN #30 packet 07/07/24 - Past Medical/Surgical History Diabetic: Yes -: Insulin-dependent diabetes -: Hypertension -: Chronic pain -: Liver mass/cancer -: Cholecystectomy -: Right BKAtraumatic -: Back surgery Psychosocial/ Personal History: Lives at home with his children/girlfriend - Social History Smoking Status: Current every day smoker Alcohol use: No CD- Drugs: No Caffeine use: No Place of Residence: Home Review of Systems 10-point ROS is otherwise unremarkable Physical Examination Temp Pulse Resp BP Pulse Ox 98.0 F 68 18 175/98 H 99 11/28/24 08:00 11/28/24 08:00 11/28/24 08:00 11/28/24 08:00 11/28/24 08:00 General: Alert, In no apparent distress HEENT: Atraumatic, PERRLA, Mucous membr. moist/pink, EOMI, Sclerae nonicteric Neck: Supple, 2+ carotid pulse no bruit, No LAD, Without JVD or thyroid abnormality Respiratory: Clear to auscultation bilaterally, Normal air movement Cardiovascular: Regular rate/rhythm, Normal S1 S2 Gastrointestinal: Normal bowel sounds, No tenderness Musculoskeletal: No tenderness Integumentary: No rashes Neurological: Normal gait, Normal speech, Normal tone, Normal affect Lymphatics: No axilla or inguinal lymphadenopathy - Problems (1) Chest pain Current Visit: Yes Status: Acute Plan: atypical, mostly gastric in origin, patient EKG and Troponin are negative get echo, if normal then no further cardiac work up needed. (2) HTN (hypertension) Current Visit: Yes Status: Acute Plan: BP is high. increase Norvasc to 5 mg daily and monitor continue lisinopril at 5 mg daily Cardiology will sign off, please call with any questions.
[2024-11-28] MEDS: HYDROMORPHONE HCL 2 MG/ML inj IV PRN (20:19)
[2024-11-29 06:14] LABS: Absolute Lymphocytes (CBC) 2.5 K/uL (0.7-4.9); Hematocrit 30.0 % (39.6-49.0); Hemoglobin 10.7 g/dL (13.6-17.9); MCH 31.5 pg (27.0-35.0); MCHC 35.7 g/dL (32.0-36.0); MCV 88.1 fL (80-100); MPV 7.1 fL (7.6-11.3); Nucleated RBC Absolute Count 0.0 (0-0); Nucleated Red Blood Cells % 0.1 % (0-0); RBC Red Blood Cell Count 3.40 M/uL (4.33-5.43); White Blood Count 6.30 thou/uL (4.3-10.9)
[2024-11-29 06:21] LABS: PT Prothrombin Time 11.8 SECONDS (10-13.0); Protime INR 1.05
[2024-11-29 06:27] LABS: Albumin 2.5 g/dL (3.4-5.0); Albumin/Globulin Ratio 0.8 (1.1-1.8); Alkaline Phosphatase 97 U/L (45-117); Anion Gap 10.4 mEq/L (5.0-15.0); BUN Blood Urea Nitrogen 22 mg/dL (7-18); Globulin 3.2 g/dL (2.3-3.5); Glucose Level 274 mg/dL (74-106); Magnesium 1.9 mg/dL (1.6-2.4); Potassium 3.4 mEq/L (3.5-5.1)
[2024-11-29 06:31] LABS: ALT/SGPT < 14 U/L (16-61); AST/SGOT < 10 U/L (15-37); Bilirubin Indirect, Calculated 0.3 mg/dL (0.2-0.8)
[2024-11-29] MEDS: HYDROMORPHONE HCL 1 MG/ML INJ IV ONE (07:20)
[2024-11-29] MEDS ORDERED: LIDOCAINE 1% MPF 5 ML VIAL ONE ×2 (08:58)
[2024-11-29] MEDS: EPINEPHRINE 1 MG/ML VIAL ONE (09:01)
[2024-11-29] MEDS: HYDROMORPHONE HCL 1 MG/ML INJ ONE (09:50)
[2024-11-29] MEDS: POTASSIUM CL SA 10 MEQ TAB PO ONE (10:44)
--- NOTE | 2024-11-29 12:10 | P.PN ---
Date of Service: 11/29/24 Subjective: tolerated EGD procedure well denies n/v/d chronic pain worse overnight, given dilaudid no new or worsening problems stool starting to lighten up, but still dark Physical Exam: Gen: Alert, Oriented, NAD CV: Regular rate and rhythm, no edema Pulm: Nonlabored respirations on room air, clear bilaterally Abdomen: Soft, tender to palpation in epigastrium and lower abdomen, nondistended Integumentary: Right BKA Neuro: Normal strength, normal affect Problem List: Acute GI bleed Reflux Esophagitis, Grade A Hematemesis/Melena Chest pain; atypical IDDM2 with severe hyperglycemia Hypertension Hyperlipidemia Hx stage IV liver cancer Chronic pain / opioid use Acute GI bleed Reflux Esophagitis, Grade A Hematemesis/Melena on admission, presents with abdominal pain, bloody coffee ground emesis, melena for [address] abd/pelvis (11/27): Diffuse rectal mucosal thickening. Splenomegaly. 4.7x2.8x4.9cm nonspecific lesion in posterior inferior liver. Mild bilateral perinephric stranding which may be chronic. Hgb 13 on admission; repeat 12.0 Continue octreotide drip Continue IV Zosyn (11/28-) GI Consulted advanced to [facility] per GI s/p EGD with Dr. Dinero today Found to have reflux esophagitis grade A and large amount of retained food seen in stomach. GI to repeat EGD in 1-2 days Continue IV PPI BID, IVF Chest pain; atypical atypical chest pain, likely GI in nature. Troponins negative x4. Monitor on telemetry Cardio consulted. Dr. Hughes recommending echo If echo normal, no further work up needed. Echo done; pending report IDDM2 with severe hyperglycemia, partly steroid induced accu-cheks, SSI confirm home insulin regimen continue semglee 5u daily. Titrate as needed Hypertension Hyperlipidemia confirm home meds, restart as appropriate lisinopril dc'd yesterday continue home amlodipine Hx stage IV liver cancer Chronic pain / opioid use Has known stage IV liver cancer on palliative care. Requesting stronger pain medication Takes Dilaudid 3mg q3h and oxycodone 30mg q4h at home VTE: SCD GI: IV protonix BID Dispo: home, at least 24-48hrs pending GI, bleeding, repeat EGD
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
[2024-11-29] MEDS ORDERED: OXYCODONE HCL 5 MG TAB PO PRN (21:38)
[2024-11-30 04:28] LABS: Absolute Lymphocytes (CBC) 2.7 K/uL (0.7-4.9); Hematocrit 32.6 % (39.6-49.0); Hemoglobin 11.6 g/dL (13.6-17.9); MCH 31.5 pg (27.0-35.0); MCHC 35.6 g/dL (32.0-36.0); MCV 88.6 fL (80-100); MPV 7.1 fL (7.6-11.3); Nucleated RBC Absolute Count 0.0 (0-0); Nucleated Red Blood Cells % 0.2 % (0-0); RBC Red Blood Cell Count 3.68 M/uL (4.33-5.43); White Blood Count 7.00 thou/uL (4.3-10.9)
[2024-11-30 04:45] LABS: Albumin 2.9 g/dL (3.4-5.0); Albumin/Globulin Ratio 0.7 (1.1-1.8); Alkaline Phosphatase 96 U/L (45-117); Anion Gap 9.7 mEq/L (5.0-15.0); BUN Blood Urea Nitrogen 16 mg/dL (7-18); Globulin 3.9 g/dL (2.3-3.5); Glucose Level 92 mg/dL (74-106); Magnesium 1.8 mg/dL (1.6-2.4); Potassium 3.7 mEq/L (3.5-5.1)
[2024-11-30 04:50] LABS: ALT/SGPT < 14 U/L (16-61); AST/SGOT < 10 U/L (15-37)
[2024-11-30] MEDS: MAGNESIUM SULFATE 1 gm IVPB 1 GM/100 ML BAG IV ONE (08:48)
[2024-11-30] MEDS: POTASSIUM CL SA 10 MEQ TAB PO ONE (08:49)
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
--- NOTE | 2024-11-30 10:41 | P.PN ---
Date of Service: 11/30/24 Subjective: still having pain reported maroon/red stool last night, flushed before anyone can see upset with any delay in receiving pain medication vitals stable; breathing okay on room air nursing staff reports Pt going out to smoke frequently Physical Exam: Gen: Alert, Oriented, occasional wincing in discomfort CV: Regular rate and rhythm, no edema Pulm: Nonlabored respirations on room air, clear bilaterally Abdomen: Soft, tender to palpation in epigastrium and lower abdomen, nondistended Integumentary: Right BKA wrapped Neuro: Normal strength, normal affect Problem List: Acute GI bleed Reflux Esophagitis, Grade A Hematemesis/Melena Chest pain; atypical 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 abd/pelvis (11/27): Diffuse rectal mucosal thickening. Splenomegaly. 4.7x2.8x4.9cm nonspecific lesion in posterior inferior liver. Mild bilateral perinephric stranding which may be chronic. Monitor hgb closely. Daily labs. Continue octreotide drip Continue IV Zosyn (11/28-) GI Consulted s/p EGD (11/29) with Dr. Dinero Found to have reflux esophagitis grade A and large amount of retained food seen in stomach. GI to repeat EGD - tentative tomorrow, uncertain if c-scope as well Continue IV PPI BID, IVF Chest pain; atypical atypical chest pain, likely GI in nature. Troponins negative x4. Monitor on telemetry Cardio consulted. If echo normal, no further work up needed. Echo done; pending report Nonhealing right BKA stump wound General surgery consulted by GI for further input Wound care per Dr. Rios: Cleanse with Vashe. Apply Silver Alginate, gauze, foam and abby wrap in figure 8 wrap daily. pressure offloading measures f/u at [facility] IDDM2 with severe hyperglycemia, partly steroid induced accu-cheks, SSI confirm home insulin regimen continue semglee 5u daily. Titrate as needed Hypertension Hyperlipidemia confirm home meds, restart as appropriate lisinopril dc'd continue home amlodipine Hx stage IV liver cancer Chronic pain / opioid use Has known stage IV liver cancer on palliative care. Requesting stronger pain medication Takes Dilaudid 3mg q3h and oxycodone 30mg q4h at home VTE: SCD GI: IV protonix BID Dispo: home, at least 24-48hrs pending GI, bleeding, repeat EGD
[2024-11-30] MEDS: HYDROMORPHONE HCL 2 MG/ML inj IV SCH (11:55)
[2024-11-30] MEDS: OXYCODONE HCL 5 MG TAB PO SCH (13:48)
--- NOTE | 2024-11-30 14:29 | RAD REPORT ---
EXAMINATION: CT Abdomen Pelvis Wo Contrast CLINICAL INDICATION: Male, 44 years old. abdominal pain, kidney pain, bloody BM TECHNIQUE: CT abdomen and pelvis was performed, without IV contrast, as per department protocol. Axia l, sagittal and coronal reconstructions were obtained. One or more of the following dose reduction techniques were used: Automated exposure control, adjustment of the mA and kV according to the patien t size, and iterative reconstruction. Unless otherwise specified, incidental findings do not require dedicated imaging follow-up. COMPARISON: 11/27/2024 FINDINGS: The lack of intravenous contrast limits the sensitivity of this exam for evaluation of solid visceral organs, vascular structures, and retroperitoneum. LOWER CHEST: The visualized lung bases are clear. LIVER: Normal in size and contour. Stable lobulated hypoattenuating right lobe inferior margin mildly expansile hypodense lesion measuring 5.0 x 3.3 cm. BILIARY SYSTEM: Status post cholecystectomy. SPLEEN: Normal size. No focal lesion. PANCREAS: No mass, ductal dilation, or chey-pancreatic fluid. ADRENALS: Normal; no mass. KIDNEYS AND URETERS: Normal size and contour. No hydronephrosis. URINARY BLADDER: Normal contour. GASTROINTESTINAL TRACT: No evidence of bowel obstruction, significant free fluid, free air or abscess . Mild gaseous distention along the sigmoid colon with mild tortuosity. Few scattered distal colonic diverticula without evidence of acute diverticulitis. APPENDIX: Normal appendix. LYMPH NODES: No lymphadenopathy. MUSCULOSKELETAL: No acute or suspicious osseous abnormality. ADDITIONAL FINDINGS: None. IMPRESSION: No acute or concerning abnormalities in the abdomen or pelvis, with evaluation limited by lack of IV contrast. Stable findings as above including a subcapsular 5 cm lesion along the inferior margin of the right l iver lobe, could relate to a cyst or hemangioma, among other considerations, not well evaluated.
[2024-11-30] MEDS: HYDROMORPHONE HCL 2 MG/ML inj IV PRN (15:29)
[2024-12-01 07:33] LABS: Hematocrit 31.6 % (39.6-49.0); Hemoglobin 11.1 g/dL (13.6-17.9); MCH 31.6 pg (27.0-35.0); MCHC 35.3 g/dL (32.0-36.0); MCV 89.6 fL (80-100); MPV 7.6 fL (7.6-11.3); RBC Red Blood Cell Count 3.52 M/uL (4.33-5.43); White Blood Count 5.60 thou/uL (4.3-10.9)
[2024-12-01 07:34] LABS: Albumin 2.8 g/dL (3.4-5.0); Albumin/Globulin Ratio 0.7 (1.1-1.8); Alkaline Phosphatase 90 U/L (45-117); Anion Gap 7.7 mEq/L (5.0-15.0); BUN Blood Urea Nitrogen 12 mg/dL (7-18); Globulin 3.9 g/dL (2.3-3.5); Glucose Level 138 mg/dL (74-106); Magnesium 2.1 mg/dL (1.6-2.4); Potassium 4.7 mEq/L (3.5-5.1)
[2024-12-01 07:35] LABS: ALT/SGPT < 14 U/L (16-61); AST/SGOT < 10 U/L (15-37)
--- NOTE | 2024-12-01 11:01 | P.PN ---
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 abd/pelvis (11/27): Diffuse rectal mucosal thickening. Splenomegaly. 4.7x2.8x4.9cm nonspecific lesion in posterior inferior liver. Mild bilateral perinephric stranding which may be chronic. CT abd/pelvis (11/30): No acute findings. Stable subcapsular 5 cm lesion along the inferior margin of the right liver lobe. Few scattered diverticula. Monitor hgb closely. Daily labs. Continue octreotide drip Continue IV Zosyn (11/28-) GI Consulted s/p EGD (11/29) with Dr. Dinero Found to have reflux esophagitis grade A and large amount of retained food seen in stomach. GI to repeat EGD - tentatively tomorrow, uncertain if c-scope as well Continue IV PPI BID, IVF Chest pain; atypical atypical chest pain, likely GI in nature. Troponins negative x4. Monitor on telemetry Cardio consulted. If echo normal, no further work up needed. Echo done; pending report Nonhealing right BKA stump wound General surgery consulted by GI for further input Wound care per Dr. Rios: Cleanse with Vashe. Apply Silver Alginate, gauze, foam and abby wrap in figure 8 wrap daily. pressure offloading measures f/u at [facility] IDDM2 with severe hyperglycemia, partly steroid induced accu-cheks, SSI confirm home insulin regimen continue semglee 5u daily. Titrate as needed Hypertension Hyperlipidemia confirm home meds, restart as appropriate lisinopril dc'd continue home amlodipine Hx stage IV liver cancer Chronic pain / opioid use Has known stage IV liver cancer on palliative care. Requesting stronger pain medication states he takes Dilaudid 3mg q3h and oxycodone 30mg q4h at home VTE: SCD GI: IV protonix BID Dispo: home, at least 24-48hrs pending GI, bleeding, repeat EGD
[2024-12-01] MEDS: D10W 125 ML IV PRN (16:03)
[2024-12-01] MEDS: DEXTROSE 10%-WATER 500 ML IV ONE (16:04)
[2024-12-01] MEDS: HYDROMORPHONE HCL 1 MG/ML INJ ONE (16:07)
--- NOTE | 2024-12-01 16:45 | P.PN ---
Subjective Date of Service: 11/30/24 Chief Complaint: GI Bleed, melena, coffee-ground emesis Subjective: Improving (EGD yesterday with large amount of food in stomach but no blood.) Physical Examination - Vital Signs Temperature: 97.9 F Blood Pressure: 155/96 Pulse: 71 Respirations: 22 Pulse Ox (%): 97 Assessment And Plan - Current Problems (Diagnosis) (1) GI bleed Current Visit: Yes Status: Acute (2) Melena Current Visit: Yes Status: Acute (3) Coffee ground emesis Current Visit: Yes Status: Acute (4) Anemia Current Visit: Yes Status: Acute (5) History of peptic ulcer disease Current Visit: Yes Status: Acute - Plan REC: 1) continue Protonix and IV Octreotide 2) repeat EGD tomorrow Physician Review: Patient Assessed, Agree with Above Assessment and Plan
--- NOTE | 2024-12-01 17:41 | P.PN ---
Subjective Date of Service: 12/01/24 Chief Complaint: GI Bleed, melena, coffee-ground emesis Subjective: New changes (Refused endoscopy(s) today. Hgb 11.1.) Physical Examination - Vital Signs Temperature: 97.9 F Blood Pressure: 155/96 Pulse: 71 Respirations: 22 Pulse Ox (%): 97 Assessment And Plan - Current Problems (Diagnosis) (1) GI bleed Current Visit: Yes Status: Acute (2) Melena Current Visit: Yes Status: Acute (3) Coffee ground emesis Current Visit: Yes Status: Acute (4) Anemia Current Visit: Yes Status: Acute (5) History of peptic ulcer disease Current Visit: Yes Status: Acute - Plan REC: 1) continue Protonix and IV Octreotide 2) EGD when patient agrees Physician Review: Patient Assessed, Agree with Above Assessment and Plan
[2024-12-02 05:29] LABS: Hematocrit 29.1 % (39.6-49.0); Hemoglobin 10.1 g/dL (13.6-17.9); MCH 31.4 pg (27.0-35.0); MCHC 34.9 g/dL (32.0-36.0); MCV 90.0 fL (80-100); MPV 7.7 fL (7.6-11.3); RBC Red Blood Cell Count 3.23 M/uL (4.33-5.43); White Blood Count 3.80 thou/uL (4.3-10.9)
[2024-12-02 05:57] LABS: ALT/SGPT 16 U/L (16-61); Albumin 2.5 g/dL (3.4-5.0); Albumin/Globulin Ratio 0.7 (1.1-1.8); Alkaline Phosphatase 135 U/L (45-117); Anion Gap 6.3 mEq/L (5.0-15.0); BUN Blood Urea Nitrogen 12 mg/dL (7-18); Globulin 3.8 g/dL (2.3-3.5); Glucose Level 377 mg/dL (74-106); Magnesium 1.9 mg/dL (1.6-2.4); Potassium 5.3 mEq/L (3.5-5.1)
[2024-12-02 06:26] LABS: AST/SGOT < 10 U/L (15-37)
--- NOTE | 2024-12-02 11:36 | P.PN ---
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 abd/pelvis (11/27): Diffuse rectal mucosal thickening. Splenomegaly. 4.7x2.8x4.9cm nonspecific lesion in posterior inferior liver. Mild bilateral perinephric stranding which may be chronic. CT abd/pelvis (11/30): No acute findings. Stable subcapsular 5 cm lesion along the inferior margin of the right liver lobe. Few scattered diverticula. Monitor hgb closely. Daily labs. s/p octreotide drip (11/28-12/02) Continue IV Zosyn (11/28-) IVF DC'd s/p EGD (11/29) with Dr. Dinero Found to have reflux esophagitis grade A and large amount of retained food seen in stomach. Pt refused repeat EGD yesterday - due to pain med timing and hypoglycemia Continue IV PPI BID advance diet to soft 12/02 - no further BM in last 24 hrs hgb slightly lower, but no bleeding, suspect dilution. repeat in AM if hgb stable, EGD can be done outpatient Chest pain; atypical atypical chest pain, likely GI in nature. Troponins negative x4. Monitor on telemetry Cardio consulted. If echo normal, no further work up needed. Echo done; pending report Nonhealing right BKA stump wound General surgery consulted by GI for further input Wound care per Dr. Rios: Cleanse with Vashe. Apply Silver Alginate, gauze, foam and abby wrap in figure 8 wrap daily. pressure offloading measures f/u at [facility] IDDM2 with severe hyperglycemia, partly steroid induced accu-cheks, SSI confirm home insulin regimen continue semglee 5u daily. Titrate as needed Hypertension Hyperlipidemia confirm home meds, restart as appropriate lisinopril dc'd continue home amlodipine Hx stage IV liver cancer Chronic pain / opioid use Has known stage IV liver cancer on palliative care. Requesting stronger pain medication states he takes Dilaudid 3mg q3h and oxycodone 30mg q4h at home VTE: SCD / ambulating GI: IV protonix BID Dispo: home, in ~24hrs repeat labs in AM
[2024-12-02] MEDS: INSULIN REGULAR (HUMAN) 100 UNIT/ML SQ SCH (20:55)
[2024-12-03 07:54] LABS: Hematocrit 30.1 % (39.6-49.0); Hemoglobin 10.5 g/dL (13.6-17.9); MCH 31.4 pg (27.0-35.0); MCHC 34.8 g/dL (32.0-36.0); MCV 90.4 fL (80-100); MPV 7.8 fL (7.6-11.3); RBC Red Blood Cell Count 3.34 M/uL (4.33-5.43); White Blood Count 5.10 thou/uL (4.3-10.9)
[2024-12-03 08:06] LABS: Albumin 2.8 g/dL (3.4-5.0); Anion Gap 8.9 mEq/L (5.0-15.0); BUN Blood Urea Nitrogen 17.0 mg/dL (7-18); Magnesium 1.8 mg/dL (1.6-2.4); Potassium 4.9 mEq/L (3.5-5.1)
[2024-12-03 08:18] LABS: Glucose Level 407.0 mg/dL (74-106)
--- NOTE | 2024-12-03 11:19 | P.DS ---
Admission Date: 11/27/24 Discharge Date: 12/03/24 Disposition: DC HOME/HOME HEALTH CARE Discharge Condition: FAIR Reason for Admission: GI Bleed, melena, coffee-ground emesis Consultations: Cardiology - Dr. Hughes / Dr. Shields GI - Dr. Dinero General surgery - Dr. Rios Brief History of Present Illness: 44 yo M, PMH: diabetes, hypertension, hyperlipidemia, liver cancer, chronic pain opioid usage on palliative care Patient presents to ER with complaints of Abdominal Pain, GI Bleeding. The patient presents to the emergency department vomiting blood, a moderate amount, coffee grounds in nature, with multiple such episodes, with rectal bleeding, a moderate amount, melena. Onset: The symptoms/episode began/occurred 2 day(s) ago. Associated with intractable abdominal pain. No fever or chills. Denies any chest pain or shortness of breath. 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 CT abd/pelvis on admission showed diffuse rectal mucosal thickening ,Splenomegaly, 4.7x2.8x4.9cm nonspecific lesion in posterior inferior liver, Mild bilateral perinephric stranding which may be chronic. Patient was started on IV zosyn and an octreotide drip on admission. GI was consulted and recommended EGD to further evaluate which noted reflux esophagitis grade A and large amount of retained food seen in stomach; performed 11/29. Nursing staff reported he was going off the floor and disconnecting his IV's every 2 or so hours. Going down to walk his service dog and smoke throughout the entire hospitalization. Did not want nicotine patch. GI had recommended to repeat EGD 24-48 hours after initial EGD to re-evaluate. At time of repeat procedure, he needed pain medication and glucose was low. Glucose improved and anesthesia advised no dilaudid minutes before undergoing EGD. Patient refused and wanted to go back to his hospital room for pain medication. Repeat CT done was negative for any acute or new findings. His hemoglobin has been fluctuating between 13-10s since admission without the need for transfusions and has remained stable off octreotide drip. Hemoglobin has been stable in 10s last 48 hours. Patient was doing better, tolerated soft diet. Order pizza the night before discharge. No further bowel movements. Vitals remained stable, hemoglobin remained stable. No indication for urgent or emergent scope at this time. No evidence of ongoing bleeding. Recommend following up with GI in the next few weeks to repeat EGD to further evaluate. On day of discharge he was noted to be severely hyperglycemic (glc 400s) however he was agitated about his chronic home pain medication and was refusing insulin. Patient's pain medications were initially via IV when NPO. He reported being on palliative care at home and would receive IV Dilaudid every 3 hours -that nursing staff would go to his house every 3 hours for IV dilaudid administration on week days, but not on weekends. He was scheduled for pain pump this last week but missed it due to this hospitalization. I attempted to call his pain doctor - Dr. Anastasiia Denson with [facility] pain clinic - using their paging / on-call service. Called Wednesday morning 12/02/24, and have not received a call back. [facility] queried and noted the oxycodone 30mg, 30 day supply with 120 pills last picked up on 10/31/24. Patient has been here since 11/27/24 , so should have at least 4 days of supply of oxycodone. No prescription needed. Unable to confirm Dilaudid. Last prescription on [facility] was in April. Patient voiced multiple times if not getting the pain medication he would just leave. He was receiving IV dilaudid PRN and PO oxycodone scheduled. He would frequently get upset with nursing staff when they were running slightly behind on medication timing - please see their notes for further details. He would not stick to recommended diets, interfered /refused testing and medication - insulin. He has remained afebrile, no leukocytosis, hgb stable, no evidence of any further bleeding, and no evidence of active bleeding on the initial EGD - although limited due to food in stomach. Patient was deemed stable for discharge home, to continue on his home palliative care medication, with addition of pantoprazole, and wound care recommendations /supplies. Patient's pain medication regimen was changed to reflect his home medication regimen as he reported - does not receive IV pain medication on weekends, so IV pain medication was discontinued. Patient was discharged. Patient was upset and stated he would be appealing his discharge, which is well within his right to do so, which I stated. When asked about pain medication, I explained he is discharged and medication's are adjusted to match his home regimen. Medications: Pantoprazole 40 twice daily Cleanse with Vashe, apply silver alginate, gauze, foam, and baby wrap in figure 8 wrap daily. Follow up: PCP 3-5 days GI in a few weeks [facility] in 1 week Please call to schedule / confirm appointments Physical Exam: Gen: Alert, Oriented CV: Regular rate and rhythm, no edema Pulm: Nonlabored respirations on room air, clear bilaterally Abdomen: Soft, nontender, nondistended Integumentary: Right BKA wrapped Vital Signs/Physical Exam: Temp Pulse Resp BP Pulse Ox 97.9 F 78 16 163/91 H 99 12/03/24 08:00 12/03/24 08:00 12/03/24 08:41 12/03/24 08:00 12/03/24 08:41 Laboratory Data at Discharge: WBC 5.10 thou/uL (4.3-10.9) 12/03/24 07:01 Hgb 10.5 g/dL (13.6-17.9) L 12/03/24 07:01 Hct 30.1 % (39.6-49.0) L 12/03/24 07:01 Plt Count 161 thou/uL (152-406) 12/03/24 07:01 PT 11.8 SECONDS (10-13.0) 11/29/24 05:55 INR 1.05 11/29/24 05:55 Sodium 139 mEq/L (136-145) 12/03/24 07:01 Potassium 4.9 mEq/L (3.5-5.1) 12/03/24 07:01 BUN 17 mg/dL (7-18) 12/03/24 07:01 Creatinine 2.40 mg/dL (0.70-1.30) H 12/03/24 07:01 Glucose 407 mg/dL (74-106) H* 12/03/24 07:01 Phosphorus 2.9 mg/dL (2.5-4.9) 12/03/24 07:01 Magnesium 1.8 mg/dL (1.6-2.4) 12/03/24 07:01 Total Bilirubin 0.3 mg/dL (0.2-1.0) 12/02/24 04:55 AST < 10 U/L (15-37) L 12/02/24 04:55 ALT 16 U/L (16-61) 12/02/24 04:55 Alkaline Phosphatase 135 U/L (45-117) H D 12/02/24 04:55 Lipase 99 U/L (13-75) H 11/27/24 02:24 Home Medications: Amlodipine [Norvasc*] 2.5 mg PO DAILY 06/09/24 Insulin Glargine,Hum.rec.anlog [Lantus Solostar] 5 units SQ BEDTIME 06/09/24 Insulin Lispro [Humalog Rojelio Kwikpen] See Protocol SQ ACHS 06/09/24 Oxycodone HCl 30 mg PO Q6HP PRN 06/09/24 Pregabalin 100 mg PO BID 06/09/24 lisinopriL [Lisinopril] 5 mg PO DAILY 06/09/24 Polyethylene Glycol 3350 [Miralax] 17 gm PO DAILY PRN #30 packet 07/07/24 Pantoprazole [Protonix Tab*] 40 mg PO BID 30 Days #60 tab 12/03/24 New Medications: Pantoprazole [Protonix Tab*] 40 mg PO BID 30 Days #60 tab Physician Discharge Instructions: Physician discharge instructions: Patient presented with abdominal pain, bloody coffee ground emesis, melena secondary to acute GI bleed. CT abd/pelvis on admission showed diffuse rectal mucosal thickening ,Splenomegaly, 4.7x2.8x4.9cm nonspecific lesion in posterior inferior liver, Mild bilateral perinephric stranding which may be chronic. Patient was started on IV zosyn and an octreotide drip on admission. GI was consulted and recommended EGD to further evaluate which noted reflux esophagitis grade A and large amount of retained food seen in stomach; performed 11/29. GI had recommended to repeat EGD 24-48 hours after initial EGD to re-evaluate. At time of repeat procedure, he needed pain medication and glucose was low. Glucose improved and anesthesia advised no dilaudid minutes before undergoing EGD. Patient refused and wanted to go back to his hospital room for pain medication. Repeat CT done after EGD was negative for any acute or new findings. His hemoglobin has been fluctuating between 13-10 since admission without the need for transfusions and has remained stable off octreotide drip. Hemoglobin has been stable in 10s last 48 hours. Patient was feeling better, abdominal pain and nausea improved, hemoglobin stable and was deemed stable for discharge. He tolerated soft diet. Order pizza the night before discharge. Recommend following up with GI in the next few weeks to repeat EGD to further evaluate cause of bleeding. Medications: Pantoprazole 40 twice daily Cleanse with Vashe, apply silver alginate, gauze, foam, and abby wrap in figure 8 wrap daily. Follow up: PCP 3-5 days GI in a few weeks C in 1 week Please call to schedule / confirm appointments Followup: JEMIMA ONOFRE [Primary Care Provider] - Time spent managing pt's care (in minutes): 45
--- NOTE | 2024-12-03 12:20 | P.PN ---
Date of Service: 12/03/24 Subjective: nursing staff report patient continues to not follow diet recommendations ordered pizza yesterday for dinner, tolerated fine says he feels a bit full /bloated this morning states no bloody BM, no BM vitals stable still demanding IV pain medication q3hr and upset if minutes late Physical Exam: Gen: Alert, Oriented CV: Regular rate and rhythm, no edema Pulm: Nonlabored respirations on room air, clear bilaterally Abdomen: non-distended Integumentary: Right BKA wrapped Problem List: Acute GI bleed, suspect upper GI bleed Reflux Esophagitis, Grade A Hematemesis/Melena Chest pain; atypical 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 CT abd/pelvis (11/27): Diffuse rectal mucosal thickening. Splenomegaly. 4.7x2.8x4.9cm nonspecific lesion in posterior inferior liver. Mild bilateral perinephric stranding which may be chronic. pt with high doses of chronic pain medication, as been seen here before for constipation, required disimpaction CT abd/pelvis (11/30): No acute findings. Stable subcapsular 5 cm lesion along the inferior margin of the right liver lobe. Few scattered diverticula. repeat CT performed due to self reported persistent pain, no worsening, but persistent Monitor hgb closely. Daily labs. s/p octreotide drip (11/28-12/02) - intermittent since patient would dc himself every few hours to go downstairs Empiric zosyn(11/28- 12/03) discontinued IVF DC'd s/p EGD (11/29) with Dr. Dinero Found to have reflux esophagitis grade A and large amount of retained food seen in stomach. Pt refused repeat EGD Wednesday - due to pain med timing and hypoglycemia - despite hypoglycemia being corrected Continue PPI BID advanced diet to soft; tolerating no further BM in last 24 hrs Hgb stable Chest pain; atypical atypical chest pain, likely GI in nature. Troponins negative x4. Monitor on telemetry Cardio consulted. If echo normal, no further work up needed. Echo done; pending report Nonhealing right BKA stump wound General surgery consulted by GI for further input Wound care per Dr. Rios: Cleanse with Vashe. Apply Silver Alginate, gauze, foam and abby wrap in figure 8 wrap daily. pressure offloading measures f/u at [facility] IDDM2 with severe hyperglycemia, partly steroid induced accu-cheks, SSI confirm home insulin regimen continue semglee 5u daily. Titrate as needed Hypertension Hyperlipidemia confirm home meds, restart as appropriate lisinopril dc'd continue home amlodipine Hx stage IV liver cancer Chronic pain / opioid use Has known stage IV liver cancer on palliative care. Requesting stronger pain medication states he takes Dilaudid 3mg q3h and oxycodone 30mg q4h at home Patient's pain medications were initially via IV when NPO. He reported being on palliative care at home and would receive IV Dilaudid every 3 hours -that nursing staff would go to his house every 3 hours for IV dilaudid administration on week days, but not on weekends. He was scheduled for pain pump this last week but missed it due to this hospitalization. I attempted to call his pain doctor - Dr. Anastasiia Denson with [facility] pain [facility] - using their paging / on-call service. Called Wednesday morning 12/02/24, and have not received a call back. [facility] queried and noted the oxycodone 30mg, 30 day supply with 120 pills last picked up on 10/31/24. Patient has been here since 11/27/24 , so should have at least 4 days of supply of oxycodone. No prescription needed. Unable to confirm Dilaudid. Last prescription on [facility] was in April. Patient voiced multiple times if not getting the pain medication he would just leave. He was receiving IV dilaudid PRN and PO oxycodone scheduled. He would frequently get upset with nursing staff when they were running slightly behind on medication timing - please see their notes for further details. He has remained afebrile, no leukocytosis, hgb stable, no evidence of any further bleeding, and no evidence of active bleeding on the initial EGD - although limited due to food in stomach. He would not stick to recommended diets, interfered /refused testing and medication - insulin. Patient was deemed stable for discharge home, to continue on his home palliative care medication, with addition of pantoprazole, and wound care recommendations /supplies. Patient's pain medication regimen was changed to reflect his home medication regimen as he reported - does not receive IV pain medication on weekends, so IV pain medication was discontinued. Patient was discharged. Patient was upset and stated he would be appealing his discharge, which is well within his right to do so, which I stated. When asked about pain medication, I explained he is discharged and medication's are adjusted to match his home regimen. VTE: SCD / ambulating Dispo: home
[2024-12-03] MEDS ORDERED: ONDANSETRON 4 MG/2 ML VIAL IV PRN (17:35)
[2024-12-04] MEDS: PANTOPRAZOLE 40MG TABLET PO SCH (10:01)
[2024-12-04 10:03] VITALS: BP 141/94
[2024-12-04 10:31] VITALS: TEMP 98.2
== END 2024-12-04 10:21 | disposition home health service (06) | DRG 369 ==
LOC: ER 02:08 → ERHOLD 05:20 → 2ND 11:05
PROVIDERS: ADMIT Family Medicine; ATTEND Hospitalist
PROC: 0DJ08ZZ Inspection of Upper Intestinal Tract, Via Natural or Artificial Opening Endoscopic (ICD-10-PCS; principal; 2024-11-29 10:00)
DX: K21.01 Gastro-esophageal reflux disease with esophagitis, with bleeding (principal); C22.8 Malignant neoplasm of liver, primary, unspecified as to type; N17.9 Acute kidney failure, unspecified; I10 Essential (primary) hypertension; E78.5 Hyperlipidemia, unspecified; G89.29 Other chronic pain; D64.9 Anemia, unspecified; E11.65 Type 2 diabetes mellitus with hyperglycemia; E11.649 Type 2 diabetes mellitus with hypoglycemia without coma; F17.200 Nicotine dependence, unspecified, uncomplicated; R07.89 Other chest pain; Z88.5 Allergy status to narcotic agent; Z79.4 Long term (current) use of insulin; Z90.49 Acquired absence of other specified parts of digestive tract; Z79.899 Other long term (current) drug therapy; Z89.511 Acquired absence of right leg below knee
CPT/HCPCS: 36415; 71045; 74176; 80048; 80053; 80069; 80076; 81001; 82947; 83690; 83735; 83880; 84484; 85018; 85025; 85027; 85610; 86850; 86900; 86901; 86920; 93005; 93306; 96365; 96366; 96372; 96375; 99285; J0171; J1171; J1815; J2003; J2354; J2405; J2470; J2543; J2704; J2919; J3010; J3475; J7030; J7040; J7050